=== PATIENT | female | born 1945 | race Caucasian/White ===

== ENCOUNTER → 2017-09-12 | Outpatient (CLI) | payer OTHER ==
[2014-03-28 10:51] VITALS: BP 118/62
[~2017-09-12] MED LIST: ALBU8.5H6 IH; AMIO200T2 PO; AMLO5TAB2 PO; ASPI-630 PO; BACL10TA PO; BUDE10.2 IH; CELE200C PO; CRESTOR20 MG PO; DIGO0.25 PO; DIGO125T PO; DULO60CA44 PO; HYDR25TA9 PO; LISI10TA2 PO; LOSA100T6 PO; METF-620 PO; METF500T4 PO; MULT-18 PO; OMEP20CA5 PO; OXYC-328 PO; Oxycodone Hcl/Acetaminophen PO; REGADENOSON 0.4 MG/5 ML DISP.SYRIN. IV ONE; SITA100T PO; TEMA30CA PO; ZOLP5TAB PO
--- NOTE | 2017-09-12 12:31 | RAD ---
APPROVED REPORT Test Type: Pharmacological Stress Nurse/Tech: Nakia Gonzáles R.N. Test Indications: afib, dyspnea Cardiac History: cad, cabg 4 vessel 2004, asthma, copd, smoker, dm Medications: see ehr Medical History: see ehr Resting ECG: sr Resting Heart Rate: 54 bpm Resting Blood Pressure: 172/65mmHg Pretest Chest Pain: No chest pain Nurse/Tech Notes lungs diminshed, no wheezes, but dyspnea noted, heart tones regular Consent: The procedure was explained to the patient in lay terms. Informed consent was witnessed. Charles eout was entered into [employer]. History and Stress Test performed by KANDACE aRscon, DARREN (R) (N) Pharm. Details Pharmacologic stress testing was performed using 0.4mg per 5ml of regadenoson given intravenously ove r 7-10 seconds. Stress Symptoms No chest pain or symptoms.Dyspnea POST EXERCISE Reason for Termination: Infusion complete Target HR: No Max HR: 64 bpm Max Blood Pressure: 155/64mmHg Chest Pain: No. Arrhythmia: No. ST Change: No. INTERPRETATION Stress EKG Conclusion: Baseline EKG showed sinus rhythm. No ischemic changes at peak stress. No arr hythmias. Imaging Protocol IMAGE PROTOCOL: Rest Tc-99m/stress Tc-99m 1 day Rest: Stress: Viability: Radiopharm.Tc99m QzisefvgvPs18g Sestamibi Dose11.1mCi 33mCi Img Date 09/12/2017 09/12/2017 Inj-Img Lzdy17yug. 60min. Rest Admin Site:IV - Right ForearmAdministrator:RT Felisa (R)(N) Stress Admin Site: IV - Right ForearmAdministrator: KANDACE Rascon, DARREN (R)(N) STRESS DATA End Diast. Vol.172.0mlAv. Heart Rate54.0bpm End Syst. Vol.65.0mlCO Index BSA0.0L/min Myocardial Kexz072.0gEject. Ulnsvaup41.0% Stress Rates Pk. Fill Rate2.25EDV/secLVtime Pk. Fill 209.22msec Pk. Empty Rate2.60ESV/secLVtime Pk. Enqrv661.19msec Pk. Fill1.11EDV/sec Stress Scores Regional WT0.00Summed WT4.00 Regional WM0.00Summed WM9.00 Study quality was good. Left Ventricular size was Normal at Rest and Stress. Lung uptake was Normal. Left Ventricular ejection fraction is 62%. The rest and stress images show normal perfusion, normal contraction and thickening. LV Perf. Quant 17 Seg. SSS0.00 17 Seg. SRS1.00 17 Seg. SDS0.00 Stress Defect Extent (% LAD)0.00Rest Defect Extent (% LAD)5.60Rev. Defect Extent (% LAD)0.00 Stress Defect Extent (% LCX) 0.00Rest Defect Extent (% LCX)0.00Rev. Defect Extent (% LCX)0.00 Stress Defect Extent (% RCA)0.00Rest Defect Extent (% RCA)0.00Rev. Defect Extent (% RCA)0.00 Stress Defect Extent (% SAMIR)0.00Rest Defect Extent (% SAMIR)2.60Rev. Defect Extent (% SAMIR)0.00 Conclusion 1. Regadenoson cardioisotope stress test did not show any evidence of ischemia or infarct. 2. Normal left ventricular systolic function with ejection fraction calculated at 62%. 3. Low risk for cardiac events.
== END | disposition home or self-care (01) ==
LOC: NM 08:31
PROVIDERS: ATTEND Physician Assistant Medical
DX: I48.91 Unspecified atrial fibrillation (principal); I25.10 Atherosclerotic heart disease of native coronary artery without angina pectoris; I49.5 Sick sinus syndrome; J44.9 Chronic obstructive pulmonary disease, unspecified; E11.9 Type 2 diabetes mellitus without complications; J45.909 Unspecified asthma, uncomplicated; R06.09 Other forms of dyspnea; Z87.891 Personal history of nicotine dependence
CPT/HCPCS: 78452; 93017; 96374; 96375; 96376; A9500; J2785

== ENCOUNTER 2017-11-29 15:22 | Inpatient (IN) | payer OTHER ==
[2017-11-29 16:05] LABS: ADD MAN DIFF? NO
[2017-11-29] MEDS: methylPREDNISolone SOD SUCC PF 125 MG/2 ML VIAL. IV (16:05)
[2017-11-29] MEDS: IV NORMAL SALINE 1000ML BAG 1,000 ML IV ×3 (16:05→19:29)
[2017-11-29] MEDS: IPRATRPIUM/ALBUTEROL 0.5/2.5MG 3 ML NEBU. NEB (16:12)
[2017-11-29 16:19] LABS: BASO % 0 % (0-3); EOS # 0.1 x10^3/uL (0.0-0.7); EOS % 1 % (0-3); HEMATOCRIT 30.8 % (36.0-47.0); HEMOGLOBIN 10.5 g/dL (12.0-15.5); LYMPH # 1.2 x10^3/uL (1.0-4.8); LYMPH % 16 % (24-48); MEAN CORPUSCULAR HEMOGLOBIN 29 pg (25-35); MEAN CORPUSCULAR HGB CONC 34 g/dL (31-37); MEAN CORPUSCULAR VOLUME 85 fL (79-100); MONO # 0.5 x10^3/uL (0.0-1.1); MONO % 7 % (0-9); NEUT # 5.7 x10^3uL (1.8-7.7); NEUT % 77 % (31-73); PLATELET COUNT 153 x10^3/uL (140-400); RED BLOOD COUNT 3.62 x10^6/uL (3.50-5.40); RED CELL DISTRIBUTION WIDTH 16.5 % (11.5-14.5); WHITE BLOOD COUNT 7.4 x10^3/uL (4.0-11.0)
[2017-11-29 16:25] LABS: ANION GAP 9 (6-14); BLOOD UREA NITROGEN 25 mg/dL (7-20); CARBON DIOXIDE 29 mmol/L (21-32); CHLORIDE 96 mmol/L (98-107); CREATININE 1.6 mg/dL (0.6-1.0); GFR 31.8; GLUCOSE 141 mg/dL (70-99); SODIUM 134 mmol/L (136-145)
[2017-11-29 16:36] LABS: TROPONINI < 0.017 ng/mL (0.000-0.055)
[2017-11-29] MEDS: AZITHROMYCIN 250 MG TABLET. PO (19:28)
[2017-11-29] MEDS ORDERED: IPRATRPIUM/ALBUTEROL 0.5/2.5MG 3 ML NEBU. NEB (20:00)
[2017-11-29] MEDS ORDERED: NON FORMULARY ITEM (Budesonide/Formoterol Fumarate (Symbicort 160-4.5 Mcg Inhaler) 10.2 GM IH (21:00)
[2017-11-29] MEDS: NON FORMULARY ITEM (Suvorexant (Belsomra) 20 MG) PO (21:00)
[2017-11-29 21:33] LABS: POC GLUCOSE 240 mg/dL (70-99)
[2017-11-29] MEDS: ATORVASTATIN CALCIUM 40 MG TABLET. PO (21:52)
[2017-11-29] MEDS: oxyCODONE ER 10 MG TAB.ER.12H PO (21:53)
[2017-11-29 22:24] LABS: TROPONINI < 0.017 ng/mL (0.000-0.055)
[2017-11-30 01:14] LABS: TROPONINI < 0.017 ng/mL (0.000-0.055)
[2017-11-30] MEDS: IV NORMAL SALINE 1000ML BAG 1,000 ML IV ×2 (05:15→11:05)
[2017-11-30 07:52] LABS: POC GLUCOSE 174 mg/dL (70-99)
[2017-11-30] MEDS: ALBUTEROL SULFATE 2.5 MG/3 ML NEBU. NEB ×4 (08:00→20:04)
[2017-11-30] MEDS: BUDESONIDE 0.5 MG/2 ML NEBU. NEB ×2 (08:00→20:04)
[2017-11-30] MEDS: DULoxetine HCL 30 MG CAPSULE.DR PO (08:06)
[2017-11-30] MEDS: DIGOXIN 125 MCG TABLET. PO (08:06)
[2017-11-30] MEDS: hydroCHLOROthiazide 25 MG TABLET PO (08:06)
[2017-11-30] MEDS: CELECOXIB 200 MG CAPSULE. PO (08:06)
[2017-11-30] MEDS: PANTOPRAZOLE 40 MG TABLET.DR. PO (08:06)
[2017-11-30] MEDS: AMIODARONE HCL 200 MG TABLET. PO (08:07)
[2017-11-30] MEDS: ASPIRIN CHEWABLE 81 MG TABLET. PO (08:07)
[2017-11-30] MEDS: BACLOFEN 10 MG TABLET. PO (08:07)
[2017-11-30] MEDS: oxyCODONE ER 10 MG TAB.ER.12H PO ×2 (08:07→20:57)
[2017-11-30] MEDS: MULTIVITAMIN with MINERAL TABLET. PO (08:07)
[2017-11-30 10:25] LABS: POC GLUCOSE 170 mg/dL (70-99)
[2017-11-30] MEDS: methylPREDNISolone SOD SUCC PF 40 MG/ML VIAL. IV ×3 (10:39→21:59)
[2017-11-30] MEDS: IV 1/2 NORMAL SALINE 1,000 ML IV (10:40)
[2017-11-30] MEDS: AZITHROMYCIN 500 MG in IV NORMAL SALINE 250ML 250 ML IV (10:40)
[2017-11-30] MEDS: cefTRIAXone IV Push 1 GM VIAL. IVP (10:40)
[2017-11-30] MEDS: LOSARTAN POTASSIUM 50 MG TABLET. PO (10:42)
[2017-11-30] MEDS: amLODIPine BESYLATE 5 MG TABLET PO (10:42)
[2017-11-30 17:06] LABS: POC GLUCOSE 194 mg/dL (70-99)
[2017-11-30] MEDS: NON FORMULARY ITEM (Suvorexant (Belsomra) 20 MG) PO (20:52)
[2017-11-30] MEDS: LACTOBACILLUS RHAMNOSUS GG 1 CAPSULE. PO (20:57)
[2017-11-30] MEDS: ATORVASTATIN CALCIUM 40 MG TABLET. PO (20:58)
[2017-11-30 21:04] LABS: POC GLUCOSE 248 mg/dL (70-99)
[2017-12-01 04:34] LABS: CREATININE 1.1 mg/dL (0.6-1.0)
[2017-12-01] MEDS: methylPREDNISolone SOD SUCC PF 40 MG/ML VIAL. IV ×3 (05:32→21:12)
[2017-12-01] MEDS: IV 1/2 NORMAL SALINE 1,000 ML IV (06:16)
[2017-12-01] MEDS: PANTOPRAZOLE 40 MG TABLET.DR. PO (06:16)
[2017-12-01 08:09] LABS: POC GLUCOSE 187 mg/dL (70-99)
[2017-12-01] MEDS: BUDESONIDE 0.5 MG/2 ML NEBU. NEB ×2 (08:14→20:35)
[2017-12-01] MEDS: ALBUTEROL SULFATE 2.5 MG/3 ML NEBU. NEB ×4 (08:14→20:35)
[2017-12-01] MEDS: MULTIVITAMIN with MINERAL TABLET. PO (08:17)
[2017-12-01] MEDS: DULoxetine HCL 30 MG CAPSULE.DR PO (08:17)
[2017-12-01] MEDS: ASPIRIN CHEWABLE 81 MG TABLET. PO (08:17)
[2017-12-01] MEDS: CELECOXIB 200 MG CAPSULE. PO (08:17)
[2017-12-01] MEDS: LACTOBACILLUS RHAMNOSUS GG 1 CAPSULE. PO ×2 (08:18→21:07)
[2017-12-01] MEDS: BACLOFEN 10 MG TABLET. PO (08:18)
[2017-12-01] MEDS: oxyCODONE ER 10 MG TAB.ER.12H PO ×2 (08:18→21:08)
[2017-12-01] MEDS: hydroCHLOROthiazide 25 MG TABLET PO (08:18)
[2017-12-01] MEDS: DIGOXIN 125 MCG TABLET. PO (08:18)
[2017-12-01] MEDS: amLODIPine BESYLATE 5 MG TABLET PO (08:19)
[2017-12-01] MEDS: AMIODARONE HCL 200 MG TABLET. PO (08:19)
[2017-12-01] MEDS: LOSARTAN POTASSIUM 50 MG TABLET. PO (08:19)
[2017-12-01] MEDS: AZITHROMYCIN 500 MG in IV NORMAL SALINE 250ML 250 ML IV (10:53)
[2017-12-01] MEDS: cefTRIAXone IV Push 1 GM VIAL. IVP (10:54)
[2017-12-01 11:40] LABS: POC GLUCOSE 184 mg/dL (70-99)
[2017-12-01] MEDS: ALPRAZolam 0.25 MG TABLET PO ×2 (13:38→21:58)
[2017-12-01 17:18] LABS: POC GLUCOSE 239 mg/dL (70-99)
[2017-12-01 20:58] LABS: POC GLUCOSE 122 mg/dL (70-99)
[2017-12-01] MEDS: NON FORMULARY ITEM (Suvorexant (Belsomra) 20 MG) PO (21:00)
[2017-12-01] MEDS: ATORVASTATIN CALCIUM 40 MG TABLET. PO (21:07)
[2017-12-02] MEDS: IV 1/2 NORMAL SALINE 1,000 ML IV (02:28)
[2017-12-02] MEDS: methylPREDNISolone SOD SUCC PF 40 MG/ML VIAL. IV (02:31)
[2017-12-02 05:32] LABS: BLOOD UREA NITROGEN 15 mg/dL (7-20); CALCIUM 9.1 mg/dL (8.5-10.1); CHLORIDE 104 mmol/L (98-107); CREATININE 1.1 mg/dL (0.6-1.0); GLUCOSE 123 mg/dL (70-99); POTASSIUM 3.8 mmol/L (3.5-5.1); SODIUM 140 mmol/L (136-145)
[2017-12-02 05:33] LABS: ANION GAP 4 (6-14); CARBON DIOXIDE 32 mmol/L (21-32)
[2017-12-02] MEDS: PANTOPRAZOLE 40 MG TABLET.DR. PO (06:10)
[2017-12-02] MEDS: ALPRAZolam 0.25 MG TABLET PO (06:14)
[2017-12-02 07:58] LABS: POC GLUCOSE 113 mg/dL (70-99)
[2017-12-02] MEDS: BUDESONIDE 0.5 MG/2 ML NEBU. NEB (08:04)
[2017-12-02] MEDS: ALBUTEROL SULFATE 2.5 MG/3 ML NEBU. NEB (08:06)
[2017-12-02] MEDS: CELECOXIB 200 MG CAPSULE. PO (08:54)
[2017-12-02] MEDS: oxyCODONE ER 10 MG TAB.ER.12H PO (08:55)
[2017-12-02] MEDS: DIGOXIN 125 MCG TABLET. PO (08:55)
[2017-12-02] MEDS: amLODIPine BESYLATE 5 MG TABLET PO (08:55)
[2017-12-02] MEDS: ASPIRIN CHEWABLE 81 MG TABLET. PO (08:56)
[2017-12-02] MEDS: DULoxetine HCL 30 MG CAPSULE.DR PO (08:56)
[2017-12-02] MEDS: MULTIVITAMIN with MINERAL TABLET. PO (08:56)
[2017-12-02] MEDS: BACLOFEN 10 MG TABLET. PO (08:56)
[2017-12-02] MEDS: LOSARTAN POTASSIUM 50 MG TABLET. PO (08:56)
[2017-12-02] MEDS: LACTOBACILLUS RHAMNOSUS GG 1 CAPSULE. PO (08:56)
[2017-12-02] MEDS: hydroCHLOROthiazide 25 MG TABLET PO (08:57)
[2017-12-02] MEDS: AMIODARONE HCL 200 MG TABLET. PO (08:57)
[2017-12-02] MEDS: cefTRIAXone IV Push 1 GM VIAL. IVP (10:18)
[2017-12-02] MEDS: AZITHROMYCIN 500 MG in IV NORMAL SALINE 250ML 250 ML IV (10:19)
[2017-12-02 11:08] LABS: POC GLUCOSE 121 mg/dL (70-99)
== END 2017-12-02 11:30 | disposition home or self-care (01) | DRG 682 ==
LOC: ER 15:22 → 5 NORTH 19:00
DX: N17.0 Acute kidney failure with tubular necrosis (principal); J96.21 Acute and chronic respiratory failure with hypoxia; I48.91 Unspecified atrial fibrillation; I50.9 Heart failure, unspecified; E11.9 Type 2 diabetes mellitus without complications; E86.0 Dehydration; J44.1 Chronic obstructive pulmonary disease with (acute) exacerbation; F17.210 Nicotine dependence, cigarettes, uncomplicated; F41.9 Anxiety disorder, unspecified; I25.10 Atherosclerotic heart disease of native coronary artery without angina pectoris; Z90.49 Acquired absence of other specified parts of digestive tract; Z95.1 Presence of aortocoronary bypass graft; Z71.6 Tobacco abuse counseling
CPT/HCPCS: 36415; 71045; 78582; 80048; 82565; 82962; 84484; 85025; 93005; 94640; 94760; 96374; 99285; 99285-25; A9540; A9558; J0456; J0696; J2920; J2930; J7030; J7050; J7613; J7620; J7626; Q0144

== ENCOUNTER → 2018-10-09 | Outpatient (CLI) | payer OTHER ==
[2017-12-02 11:00] VITALS: BP 141/81
[~2018-10-09] MED LIST changes: -AMIO200T2 PO; +AMIO200T4 PO; -AMLO5TAB2 PO; +AMLO5TAB7 PO; +DOXY100C14 PO; +HYDR-2145 PO; -HYDR25TA9 PO; +LOSA100T14 PO; -LOSA100T6 PO; -METF-620 PO; +METF10007 PO; +METF500T16 PO; -METF500T4 PO; -OXYC-328 PO; +OXYC1TAB22 PO; +OXYC20TA34 PO; +PRED20TA PO; -REGADENOSON 0.4 MG/5 ML DISP.SYRIN. IV ONE; +SUVO20TA PO
--- NOTE | 2018-10-09 15:48 | CARD ---
MR#: [id number] Date of Study: 10/09/2018 Ordering Physician: JAYLA BRAY, Referring Physician: JAYLA BRAY, Tech: Lis Gleason [facility] APPROVED REPORT EXAM: Two-dimensional and M-mode echocardiogram with Doppler and color Doppler. Other Information Quality : AverageHR: 56bpm Rhythm : Atrial Fibrillation INDICATION COPD Atrial Fibrillation Congestive Heart Failure RISK FACTORS Smoking 2D DIMENSIONS RVDd4.0 (2.9-3.5cm)Left Atrium(2D)4.2 (1.6-4.0cm) IVSd0.8 (0.7-1.1cm)Aortic Root(2D)3.3 (2.0-3.7cm) LVDd6.1 (3.9-5.9cm)LVOT Diameter1.9 (1.8-2.4cm) PWd1.0 (0.7-1.1cm)LVDs4.5 (2.5-4.0cm) FS (%) 26.3 %SV95.6 ml Aortic Valve AoV Peak Jun.242.4cm/sAoV VTI54.8cm AO Peak GR.23.5mmHgAO Mean GR.13mmHg Pulmonary Valve PV Peak Xlvskpgw953.9cm/s Tricuspid Valve TR P. Azodotxd995vv/sTR Peak Gr.30mmHg Pulmonary Vein S1 Unvyrbck49.8cm/sD2 Xvntmtrb41.6cm/s PVa jkcrsjae691prjo LEFT VENTRICLE The Left Ventricle is borderline dilated. There is borderline concentric left ventricular hypertrophy . The left ventricular systolic function is normal and the ejection fraction is within normal range. Left ventricular ejection fraction is estimated at 50%. There is normal LV segmental wall motion. RIGHT VENTRICLE The right ventricle is mildly dilated. There is normal right ventricular wall thickness. The right ve ntricular systolic function is normal. ATRIA The left atrium is mild to moderately dilated. The right atrium is mildly dilated. The interatrial se ptum is intact with no evidence for an atrial septal defect or patent foramen ovale as noted on 2-D o r Doppler imaging. AORTIC VALVE The aortic valve is mildly thickened but opens well. Doppler and Color Flow revealed trace aortic reg urgitation. There is no significant aortic valvular stenosis. MITRAL VALVE The mitral valve is normal in structure and function. Doppler and Color-flow revealed mild mitral reg urgitation. TRICUSPID VALVE The tricuspid valve is normal in structure and function. Doppler and Color Flow revealed mild tricusp id regurgitation. Estimated PAP 35mmHg. PULMONIC VALVE Doppler and Color Flow revealed no pulmonic valvular regurgitation. There is no pulmonic valvular sarath nosis. GREAT VESSELS The aortic root is normal in size. The IVC is normal in size and collapses >50% with inspiration. PERICARDIAL EFFUSION There is no evidence of significant pericardial effusion. Critical Notification Critical Value: No <Conclusion> The Left Ventricle is borderline dilated. The left ventricular systolic function is normal and the ejection fraction is within normal range. Left ventricular ejection fraction is estimated at 50%. There is borderline concentric left ventricular hypertrophy. There is no significant aortic valvular stenosis. Doppler and Color Flow revealed trace aortic regurgitation. Doppler and Color-flow revealed mild mitral regurgitation. Doppler and Color Flow revealed mild tricuspid regurgitation. Estimated PAP 35mmHg. Signed by : Zach Hernandez MD Electronically Approved : 10/09/2018 15:46:07
== END | disposition home or self-care (01) ==
LOC: ECHO 14:01
PROVIDERS: ATTEND Physician Assistant Medical
DX: I08.1 Rheumatic disorders of both mitral and tricuspid valves (principal); I11.0 Hypertensive heart disease with heart failure; I50.31 Acute diastolic (congestive) heart failure; I48.91 Unspecified atrial fibrillation; F17.210 Nicotine dependence, cigarettes, uncomplicated
CPT/HCPCS: 93306

== ENCOUNTER → 2019-09-21 | Outpatient (CLI) | payer OTHER ==
[2017-12-02 11:00] VITALS: BP 141/81
[~2019-09-21] MED LIST changes: +AMLO5TAB10 PO; -AMLO5TAB7 PO; -DIGO125T PO; +DIGO125T3 PO; -DULO60CA44 PO; +DULO60CA45 PO; +REGADENOSON 0.4 MG/5 ML DISP.SYRIN. IV ONE
--- NOTE | 2019-09-21 10:54 | CARD ---
MR#: [id number] Date of Study: 09/21/2019 Ordering Physician: AMPARO DUNN, Referring Physician: AMPARO DUNN, Tech: Madelin Russell APPROVED REPORT EXAM: Two-dimensional and M-mode echocardiogram with Doppler and color Doppler. Other Information Quality : FairHR: 68bpm Technically limited study due to smoking. INDICATION Cardiac Disease: CAD Surgery/Intervention CABG: Date: 2003 RISK FACTORS Hypertension Hyperlipidemia Diabetes Smoking 2D DIMENSIONS Left Atrium(2D)3.4 (1.6-4.0cm)IVSd1.1 (0.7-1.1cm) Aortic Root(2D)3.6 (2.0-3.7cm)LVDd5.7 (3.9-5.9cm) LVOT Diameter2.0 (1.8-2.4cm)PWd1.3 (0.7-1.1cm) LVDs4.9 (2.5-4.0cm)FS (%) 13.0 % SV43.4 mlLVEF(%)27.5 (>50%) Aortic Valve AoV Peak Jun.253.6cm/sAoV VTI48.6cm AO Peak GR.25.7mmHgLVOT Peak Jun.52.6cm/s LVOT VTI 15.10cmAO Mean GR.14mmHg BESS (VMAX)0.18sw2QAV (VTI)0.94cm2 AI P 1/2 Xodk560jd Mitral Valve MV E Xxuzrzod545.8cm/sMV E Peak Gr.172mmHg MV DECEL [id number] A Mltzvcbi17.2cm/s MV E Mean Gr.2mmHgMV ISO37do E/A Ratio2.1MVA (PHT)4.86cm2 TDI E/Lateral E'13.9E/Medial E'16.0 Pulmonary Valve PV Peak Gfsvbopi978.2cm/sPV Peak Grad.5mmHg Tricuspid Valve TR P. Sqzodrwt850rv/sTR Peak Gr.29mmHg Pulmonary Vein S1 Ftewshee93.8cm/sD2 Twmcwjcm61.2cm/s PVa medqbohc429lqfv LEFT VENTRICLE The Left Ventricle is mildly dilated. There is mild to moderate concentric left ventricular hypertrop hy. The left ventricular systolic function is mildly decreased. EF 40-45% Mild global hypokinesis. Th e left ventricular diastolic function and filling is normal for age. RIGHT VENTRICLE The right ventricle is normal size. There is normal right ventricular wall thickness. The right ventr icular systolic function is normal. ATRIA The left atrium is borderline dilated. The right atrium is mildly dilated. The interatrial septum is intact with no evidence for an atrial septal defect or patent foramen ovale as noted on 2-D or Dopple r imaging. AORTIC VALVE The aortic valve is calcified and displays decreased opening. Doppler and Color Flow revealed mild ao rtic regurgitation. Calculated aortic valve area is .86 cm2 with maximum pressure gradient of 41 mmHg and mean pressure gradient of 17 mmHg. Doppler and color-flow analysis revealed moderate aortic sten osis. MITRAL VALVE The mitral valve has a restricted posterior leaflet. There is no evidence of mitral valve prolapse. T here is no mitral valve stenosis. Doppler and Color-flow revealed moderate mitral regurgitation. TRICUSPID VALVE The tricuspid valve is normal in structure and function. Doppler and Color Flow revealed trace tricus pid regurgitation with an estimated PAP of 35 mmHg. There is no tricuspid valve stenosis. PULMONIC VALVE Doppler and Color Flow revealed no pulmonic valvular regurgitation. There is no pulmonic valvular sarath nosis. GREAT VESSELS The aortic root is normal in size. The IVC is normal in size and collapses >50% with inspiration. PERICARDIAL EFFUSION There is no evidence of significant pericardial effusion. Critical Notification Critical Value: No <Conclusion> The left ventricular systolic function is mildly decreased. EF 40-45% Mild global hypokinesis. Calculated aortic valve area is .86 cm2 with maximum pressure gradient of 41 mmHg and mean pressure g radient of 17 mmHg. Doppler and color-flow analysis revealed moderate aortic stenosis. Doppler and Color-flow revealed moderate mitral regurgitation. Signed by : Lamine Yan, Electronically Approved : 09/21/2019 10:54:21
--- NOTE | 2019-09-21 14:22 | RAD ---
MR#: [id number] Date of Study: 09/21/2019 Ordering Physician: AMPARO DUNN, Referring Physician: JULIA SALAZAR Tech: KANDACE Rascon, ARRT (R) (N) APPROVED REPORT Test Type: Pharmacological Stress Nurse/Tech: Ruby Onofre RN Test Indications: CAD Cardiac History: Afib, CABG 2004, HTN, Asthma, COPD, Diabetes Medications: See Electronic Medical Record Medical History: See Electronic Medical Record Resting ECG: Afib Resting Heart Rate: 68 bpm Resting Blood Pressure: 157/79mmHg Pretest Chest Pain: No chest pain Nurse/Tech Notes S1S2, Lungs CTA Consent: The procedure was explained to the patient in lay terms. Informed consent was witnessed. Charles eout was entered into [employer]. History and Stress Test performed by RT Crow Oconnor) (N) Pharm. Details Pharmacologic stress testing was performed using 0.4mg per 5ml of regadenoson given intravenously ove r 7-10 seconds. Stress Symptoms No chest pain or symptoms. POST EXERCISE Reason for Termination: Infusion complete Max HR: 103 bpm Max Blood Pressure: 163/79mmHg Blood Pressure response to exercise: Normal blood pressure response during stress. Heart Rate response to exercise: WNL Chest Pain: No. Arrhythmia: No. ST Change: No. INTERPRETATION Stress EKG Conclusion: No evidence of stress induced EKG changes. Imaging Protocol IMAGE PROTOCOL: Rest Tc-99m/stress Tc-99m 1 day Rest: Stress: Viability: Radiopharm.Tc99m FiuzbzccsFz91y Sestamibi Qfqh86pRe 33mCi Img Date 09/21/2019 09/21/2019 Inj-Img Vkyw85xii. 60min. Rest Admin Site:IV - Right AntecubitalAdministrator:MARLENA Rajput Stress Admin Site: IV - Right AntecubitalAdministrator: RT Elvin (R)(N) STRESS DATA End Diast. Vol.171.0mlLVEDV index CYK898.0ml End Syst. Vol.87.0mlLVESV index BSA57.0ml Myocardial Zpgz745.0gEject. Jehyzrjc86.0% Stress Scores Regional WT2.00Summed WT20.00 Regional WM0.00Summed WM11.00 LV Perfusion There is a small FIXED apical perfusion defect suggestive of prior infarct w/o significant ischemia. Wall Motion Mild global hypokinesis. EF 47% LV Perf. Quant 17 Seg. SSS1.00 17 Seg. SRS2.00 17 Seg. SDS0.00 Stress Defect Extent (% LAD)3.80Rest Defect Extent (% LAD)14.40Rev. Defect Extent (% LAD)0.00 Stress Defect Extent (% LCX) 0.00Rest Defect Extent (% LCX)0.00Rev. Defect Extent (% LCX)0.00 Stress Defect Extent (% RCA)0.00Rest Defect Extent (% RCA)0.00Rev. Defect Extent (% RCA)0.00 Stress Defect Extent (% SAMIR)1.30Rest Defect Extent (% SAMIR)6.50Rev. Defect Extent (% SAMIR)0.00 Other Information Quality:Average Risk Assessment: Moderate Risk Conclusion 1. No evidence of EKG changes with stress testing. 2. Small fixed apical perfusion defect. 3. Mild LV dysfunction. EF 47% 4. Low to moderate risk study. Signed by : Lamine Yan, Electronically Approved : 09/21/2019 14:21:59
== END | disposition home or self-care (01) ==
LOC: NM 08:47
PROVIDERS: ATTEND Internal Medicine Cardiovascular Disease
DX: I08.0 Rheumatic disorders of both mitral and aortic valves (principal); I25.10 Atherosclerotic heart disease of native coronary artery without angina pectoris; I48.91 Unspecified atrial fibrillation; I10 Essential (primary) hypertension; J45.909 Unspecified asthma, uncomplicated; J44.9 Chronic obstructive pulmonary disease, unspecified; Z87.891 Personal history of nicotine dependence; Z95.1 Presence of aortocoronary bypass graft
CPT/HCPCS: 78452; 93017; 93306; A9500; J2785

== ENCOUNTER 2020-02-24 12:50 | Inpatient (IN) | payer MEDICARE ==
[2020-02-24] VITALS (12 sets, daily range): BP systolic 145–176; BP diastolic 48–73
[~2020-02-24] VITALS: Ht 157.5 cm; Wt 62.1 kg
[~2020-02-24 12:50] MED LIST changes: -REGADENOSON 0.4 MG/5 ML DISP.SYRIN. IV ONE
[2020-02-24 14:19] LABS: BASO % 1 % (0-3); EOS # 0.1 x10^3/uL (0.0-0.7); EOS % 2 % (0-3); LYMPH % 13 % (24-48); MEAN CORPUSCULAR HEMOGLOBIN 23 pg (25-35); MEAN CORPUSCULAR HGB CONC 32 g/dL (31-37); MEAN CORPUSCULAR VOLUME 74 fL (79-100); MONO # 0.5 x10^3/uL (0.0-1.1); MONO % 6 % (0-9); NEUT # 5.9 x10^3/uL (1.8-7.7); NEUT % 79 % (31-73); PLATELET COUNT 211 x10^3/uL (140-400); RED BLOOD COUNT 2.48 x10^6/uL (3.50-5.40); RED CELL DISTRIBUTION WIDTH 16.5 % (11.5-14.5); WHITE BLOOD COUNT 7.6 x10^3/uL (4.0-11.0)
[2020-02-24 14:22] LABS: HEMATOCRIT 18.3 % (36.0-47.0); HEMOGLOBIN 5.8 g/dL (12.0-15.5)
--- NOTE | 2020-02-24 14:26 | NUR ---
critical Hgb and Hct reported to REBECCA Ray
[2020-02-24 14:46] LABS: ALBUMIN 3.3 g/dL (3.4-5.0); ALBUMIN/GLOBULIN RATIO 1.1 (1.0-1.7); CALCIUM 8.7 mg/dL (8.5-10.1); CREATININE 1.2 mg/dL (0.6-1.0); GFR 43.9; POTASSIUM 4.8 mmol/L (3.5-5.1); TOTAL BILIRUBIN 0.4 mg/dL (0.2-1.0); TOTAL PROTEIN 6.2 g/dL (6.4-8.2)
[2020-02-24] MEDS ORDERED: METO-239 PO (15:06)
[2020-02-24] MEDS ORDERED: VENTOLIN HFA18 GM INH (15:06)
[2020-02-24] MEDS ORDERED: OMEP40CA45 PO (15:06)
[2020-02-24] MEDS ORDERED: FLUT1DIS3 IH (15:06)
[2020-02-24] MEDS ORDERED: SUVO20TA PO (15:06)
[2020-02-24] MEDS ORDERED: HYDR25TA PO (15:06)
[2020-02-24] MEDS ORDERED: GABA300C18 PO (15:06)
[2020-02-24] MEDS ORDERED: LEVA1.252 IH (15:06)
[2020-02-24] MEDS ORDERED: VARE1TAB21 PO (15:06)
--- NOTE | 2020-02-24 15:29 | PDOC2 ---
GI CONSULT Reason For Consult: GI bleed HPI: HPI: Spunky 75 y/o female directly admitted by Dr. Pickett. Has noted dark stools ("not black but just really really really dark brown") for 1.5-2 weeks and has felt run down for the past couple days. Usually sees Juan Liu PA-C, and called him last week to report her "legs were dancing all night." Had labs on Saturday and was called on Saturday w/ recommendations to come to the hospital re: a phil. She didn't want to come but Dr. Pickett convinced her to come in today. Denies reflux/heartburn, n/v, abd pain, diarrhea, hematochezia, change in appetite, and weight loss. Has occasional solid food dysphagia and has been thinking about seeing Dr. Gaston for esophageal dilation. Has been more constipated for awhile - takes Milk of Magnesia PRN with good response. Had EGD and colonoscopy w/ Dr. Gaston in 2013 - cannot view procedure reports or path but after underwent right hemicolectomy w/ Dr. Lynch for right colon mass - also unable to view path. She says "it was stage 1 cancer and they said not to worry about it." H/o Weinberg's per other records. No GB, liver, pancreas, or PUD history. Unaware of any previous issues w/ anemia. H/o CAD on ASA and Eliquis - says started Eliquis w/ Dr. Garcia in late 2019 or early 2019. Summary list includes Celebrex - she denies and says she takes OxyContin instead. Says she was told she could have liquids tonight and an EGD tomorrow. PMH: PMH: CAD, A Fib, HTN, COPD (uses O2 at night), DM, BCC, melanoma tubal ligation, appendectomy, incisional hernia repair, right hemicolectomy FH: Family History: No pertinent hx Social History: Smoke: Quit ALCOHOL: none Drugs: None ROS: GEN: +fatigue HEENT: Denies blurred vision, sore throat CV: Denies chest pain RESP: Denies shortness of air, cough GI: Per HPI : Denies hematuria, dysuria ENDO: Denies weight changes NEURO: Denies confusion, dizziness MSK: +chronic pain SKIN: Denies jaundice, pruritus Vitals: Vitals: Vital Signs Date Time Temp Pulse Resp B/P (MAP) Pulse Ox O2 Delivery O2 Flow Rate FiO2 02/24/20 15:08 98.4 73 18 152/52 (85) 97 Room Air 98.4 02/24/20 13:45 2.0 Labs: Labs: Laboratory Tests Test 02/24/20 13:50 White Blood Count 7.6 x10^3/uL (4.0-11.0) Red Blood Count 2.48 x10^6/uL (3.50-5.40) Hemoglobin 5.8 g/dL (12.0-15.5) Hematocrit 18.3 % (36.0-47.0) Mean Corpuscular Volume 74 fL (79-100) Mean Corpuscular Hemoglobin 23 pg (25-35) Mean Corpuscular Hemoglobin Concent 32 g/dL (31-37) Red Cell Distribution Width 16.5 % (11.5-14.5) Platelet Count 211 x10^3/uL (140-400) Neutrophils (%) (Auto) 79 % (31-73) Lymphocytes (%) (Auto) 13 % (24-48) Monocytes (%) (Auto) 6 % (0-9) Eosinophils (%) (Auto) 2 % (0-3) Basophils (%) (Auto) 1 % (0-3) Neutrophils # (Auto) 5.9 x10^3/uL (1.8-7.7) Lymphocytes # (Auto) 1.0 x10^3/uL (1.0-4.8) Monocytes # (Auto) 0.5 x10^3/uL (0.0-1.1) Eosinophils # (Auto) 0.1 x10^3/uL (0.0-0.7) Basophils # (Auto) 0.0 x10^3/uL (0.0-0.2) Prothrombin Time 14.0 SEC (11.7-14.0) Prothromb Time International Ratio 1.1 (0.8-1.1) Sodium Level 137 mmol/L (136-145) Potassium Level 4.8 mmol/L (3.5-5.1) Chloride Level 99 mmol/L (98-107) Carbon Dioxide Level 29 mmol/L (21-32) Anion Gap 9 (6-14) Blood Urea Nitrogen 17 mg/dL (7-20) Creatinine 1.2 mg/dL (0.6-1.0) Estimated GFR (Cockcroft-Gault) 43.9 BUN/Creatinine Ratio 14 (6-20) Glucose Level 113 mg/dL (70-99) Calcium Level 8.7 mg/dL (8.5-10.1) Total Bilirubin 0.4 mg/dL (0.2-1.0) Aspartate Amino Transf (AST/SGOT) 12 U/L (15-37) Alanine Aminotransferase (ALT/SGPT) 14 U/L (14-59) Alkaline Phosphatase 87 U/L (46-116) Total Protein 6.2 g/dL (6.4-8.2) Albumin 3.3 g/dL (3.4-5.0) Albumin/Globulin Ratio 1.1 (1.0-1.7) Allergies: Coded Allergies: No Known Drug Allergies (Unverified , 02/17/14) PE: GEN: NAD HEENT: Atraumatic, PERRL LUNGS: CTAB anteriorly HEART: RRR +murm ABD: NABS, S/ND/NT EXTREMITY: No edema SKIN: No rashes, no jaundice NEURO/PSYCH: A & O 3 A/P: A/P: Dark stools, fatigue Microcytic anemia H/o Weinberg's esophagus Intermittent solid-food dysphagia CRC screen - last in 2013 S/p right hemicolectomy for colon mass Constipation - controlled A Fib and CAD on Eliquis and ASA ?NSAID use - Celebrex on list, she denies -- Agree w/ transfusion. Check anemia parameters for completeness. Add IV PPI for now. D/w Dr. Gaston - plan for EGD at noon tomorrow (NPO at midnight). Due for screening colonoscopy - could pursue as outpt pending hospital course. CORNELIO ELIAS February 24, 2020 15:29
--- NOTE | 2020-02-24 15:49 | HP ---
ADMIT DATE: 02/24/2020 CHIEF COMPLAINT: Severe anemia. HISTORY OF PRESENT ILLNESS: A 75-year-old white female, patient of ours, who has a history of known chronic atrial fibrillation and prior coronary artery disease, has been having melena for about the last 2 weeks. She was seen in the office by GERRI Sauceda about 4 days prior to admission and hemoglobin was 6.5. She declined intervention at that time and stopped taking the Eliquis and aspirin that she has been taking and was seen again in the office by Dr. Pickett. Hemoglobin was down to 5.8 even though she felt about the same and she is admitted for transfusions and GI evaluation. She has been on Eliquis for about the last 3 months for chronic atrial fibrillation with high risk for embolic phenomenon and had no problems until about 2 weeks ago regarding the melena. There has been no dysphagia, weight loss, vomiting, hematochezia or any other specific symptoms. She has been taking omeprazole every day throughout the entire course of these events. PAST MEDICAL HISTORY: She had bypass about 15 years ago. She has stable coronary artery disease and since then she has been on aspirin for many years, but the Eliquis has been the last 3 months or so. She has no other significant medical problems. ALLERGIES: No allergies. MEDICATIONS: She is on multiple meds listed per the chart, but no aspirin like products such as Aleve or ibuprofen. Last upper and lower endoscopy were approximately 2013 to her knowledge. SOCIAL HISTORY: She is . She is a nonsmoker, nondrinker. FAMILY HISTORY: Unremarkable. REVIEW OF SYSTEMS: No other problems except restless leg symptoms in the last 2-3 weeks concordant with the anemia. OBJECTIVE: HEENT: Mucosa pale. Moderate pallor is noted. Sclerae clear. TMs and pharynx normal. NECK: Revealed no carotid bruits, nodes or masses. LUNGS: No breathing problems. CARDIOVASCULAR: Regular rate. Grade 2-3 systolic murmur across the precordium. No irregular heartbeat is heard. ABDOMEN: Soft, benign and nontender. RECTAL: Heme positive melanotic stool on the day of exam prior to the office visit. No masses are felt. EXTREMITIES: Nailbed pallor. Good pedal and radial pulses. No joint or skin lesions. NEUROLOGIC: Physiologic. ASSESSMENT: 1. Severe iron deficiency anemia secondary to ongoing gastrointestinal blood loss. The addition of Eliquis 3 months ago appears to have precipitated this blood loss. 2. Chronic atrial fibrillation, rate controlled. 3. Coronary artery disease, medically stable despite anemia. 4. Chronic obstructive pulmonary disease. PLAN: Transfusion of 2 units of packed cells to try to get her hemoglobin at least around 8 grams or higher. Continue off Eliquis and aspirin as risk greater than benefit and appropriate consultations to consider at least upper endoscopy because of the acute melanotic blood loss. NOE PICKETT MD DR: KE/bobby JOB#: [id number] / [id number]
[2020-02-24] MEDS: PANTOPRAZOLE IV PUSH 40 MG VIAL. IVP SCH (15:59)
[2020-02-24] MEDS ORDERED: GABAPENTIN 300 MG CAPSULE. PO PRN (16:45)
[2020-02-24] MEDS ORDERED: ALBUTEROL SULFATE 2.5 MG/3 ML NEBU. NEB PRN (16:45)
[2020-02-24] MEDS: hydrOXYzine 25 MG TABLET PO SCH ×2 (17:28→20:06)
[2020-02-24] MEDS: metFORMIN 500 MG TABLET PO SCH (17:28)
[2020-02-24] MEDS ORDERED: NON FORMULARY ITEM (Albuterol Sulfate (Ventolin Hfa Inhaler) 2 PUFF) INH SCH (20:00)
[2020-02-24] MEDS: VARENICLINE 0.5 MG TABLET. PO SCH (20:05)
[2020-02-24] MEDS: oxyCODONE ER 10 MG TAB.ER.12H PO SCH (20:06)
[2020-02-24] MEDS: ATORVASTATIN CALCIUM 40 MG TABLET. PO SCH (20:06)
[2020-02-24] MEDS: NON FORMULARY ITEM (Suvorexant (Belsomra) 20 MG) PO SCH (21:00)
[2020-02-24] MEDS ORDERED: NON FORMULARY ITEM (Fluticasone/Salmeterol (Advair 250-50 Diskus) 1 PUFF) IH SCH (21:00)
[2020-02-24] MEDS ORDERED: LEVALBUTEROL HCL 1.25 MG IH SCH (21:00)
[2020-02-24] MEDS: BUDESONIDE 0.5 MG/2 ML NEBU. NEB SCH (21:01)
[2020-02-24] MEDS: ALBUTEROL SULFATE 2.5 MG/3 ML NEBU. NEB SCH (21:01)
[2020-02-25] VITALS (9 sets, daily range): BP systolic 137–167; BP diastolic 45–80
[2020-02-25 06:06] LABS: HEMATOCRIT 22.9 % (36.0-47.0); HEMOGLOBIN 7.5 g/dL (12.0-15.5); RED BLOOD COUNT 2.97 x10^6/uL (3.50-5.40); RED CELL DISTRIBUTION WIDTH 18.5 % (11.5-14.5); WHITE BLOOD COUNT 7.1 x10^3/uL (4.0-11.0)
[2020-02-25] MEDS: ALBUTEROL SULFATE 2.5 MG/3 ML NEBU. NEB SCH ×4 (07:16→19:54)
[2020-02-25] MEDS: BUDESONIDE 0.5 MG/2 ML NEBU. NEB SCH ×2 (07:16→19:54)
[2020-02-25] MEDS: PANTOPRAZOLE IV PUSH 40 MG VIAL. IVP SCH (08:59)
[2020-02-25] MEDS: DULoxetine HCL 30 MG CAPSULE.DR PO SCH (09:00)
[2020-02-25] MEDS ORDERED: NON FORMULARY ITEM (Omeprazole 1 CAP) PO SCH (09:00)
--- NOTE | 2020-02-25 10:55 | NUR ---
patient transferred to outpatient for procedure.
[2020-02-25] MEDS ORDERED: PROPOFOL 10 MG/ML (20ML) VIAL. IV ONE (11:25)
[2020-02-25] MEDS: IV RINGERS,LACTATED 1000ML 1,000 ML IV SCH ×2 (11:29→12:41)
--- NOTE | 2020-02-25 12:24 | PDOC4 ---
Operative Note Operative Note EGD Meds propofol per anesthesia Pre-op dx chronic blood loss anemia Post-op reflux esophagitis Plan advance diet serial cbcs o/p colonoscopy to further assess ERIC AGUILAR MD February 25, 2020 12:24
[2020-02-25] MEDS: hydrOXYzine 25 MG TABLET PO SCH ×4 (13:00→21:10)
[2020-02-25] MEDS: metFORMIN 500 MG TABLET PO SCH ×2 (13:10→16:54)
[2020-02-25] MEDS: CELECOXIB 100 MG CAPSULE. PO SCH (13:10)
[2020-02-25] MEDS: VARENICLINE 0.5 MG TABLET. PO SCH ×2 (13:10→21:10)
[2020-02-25] MEDS: hydroCHLOROthiazide 25 MG TABLET PO SCH (13:10)
[2020-02-25] MEDS: oxyCODONE ER 10 MG TAB.ER.12H PO SCH ×2 (13:11→21:09)
[2020-02-25] MEDS: BACLOFEN 10 MG TABLET. PO SCH (13:11)
[2020-02-25] MEDS: LOSARTAN POTASSIUM 50 MG TABLET. PO SCH (13:12)
[2020-02-25] MEDS: METOPROLOL SUCC 24HR ER 25 MG TAB.ER.24H. PO SCH (13:13)
[2020-02-25] MEDS: amLODIPine BESYLATE 5 MG TABLET PO SCH (13:13)
[2020-02-25] MEDS: DIGOXIN 125 MCG TABLET. PO SCH (13:13)
[2020-02-25] MEDS ORDERED: POLYETHYLENE GLYCOL 3350 17 GM PACKET. PO PRN (13:15)
--- NOTE | 2020-02-25 13:19 | NUR ---
Patient returned to room from procedure. Patient tolerated the procedure well.
[2020-02-25] MEDS: FERROUS SULFATE 325 MG TABLET. PO SCH (14:00)
--- NOTE | 2020-02-25 15:13 | NUR ---
SS following for discharge planning. SS reviewed pt chart and discussed with pt RN. Pt is from home and is currently on room air. Pt had EGD today. SS will continue to follow for discharge planning.
--- NOTE | 2020-02-25 15:58 | NUR ---
assumed care from Flor. transferred from 6th floor. iv infiltrated and discontinued prior to transfer (after shower). no further blood today. oriented to room call light. extra pillows obtained per request. o2 placed. clothes placed in room.
[2020-02-25] MEDS: NON FORMULARY ITEM (Suvorexant (Belsomra) 20 MG) PO SCH (21:00)
[2020-02-25] MEDS: ATORVASTATIN CALCIUM 40 MG TABLET. PO SCH (21:10)
[2020-02-26] VITALS (8 sets, daily range): BP systolic 147–171; BP diastolic 45–78
[2020-02-26 05:08] LABS: HEMATOCRIT 29.9 % (36.0-47.0); HEMOGLOBIN 9.3 g/dL (12.0-15.5)
[2020-02-26] MEDS: IV RINGERS,LACTATED 1000ML 1,000 ML IV SCH (06:24)
[2020-02-26] MEDS: BUDESONIDE 0.5 MG/2 ML NEBU. NEB SCH (07:09)
[2020-02-26] MEDS: ALBUTEROL SULFATE 2.5 MG/3 ML NEBU. NEB SCH ×2 (07:10→10:55)
[2020-02-26] MEDS ORDERED: PANTOPRAZOLE 40 MG TABLET.DR. PO SCH (07:30)
--- NOTE | 2020-02-26 07:56 | PDOC ---
Provider Note Provider Note vss, feels better- egd results pending, hb up 9.3 after 3rd unit- ok to dc and follow as op weekly of oac [id number] NOE MILLER MD February 26, 2020 07:56
[2020-02-26] MEDS: BACLOFEN 10 MG TABLET. PO SCH (08:35)
[2020-02-26] MEDS: DULoxetine HCL 30 MG CAPSULE.DR PO SCH (08:36)
[2020-02-26] MEDS: CELECOXIB 100 MG CAPSULE. PO SCH (08:36)
[2020-02-26] MEDS: oxyCODONE ER 10 MG TAB.ER.12H PO SCH (08:36)
[2020-02-26] MEDS: metFORMIN 500 MG TABLET PO SCH (08:37)
[2020-02-26] MEDS: amLODIPine BESYLATE 5 MG TABLET PO SCH (08:37)
[2020-02-26] MEDS: LOSARTAN POTASSIUM 50 MG TABLET. PO SCH (08:37)
[2020-02-26] MEDS: hydroCHLOROthiazide 25 MG TABLET PO SCH (08:38)
[2020-02-26] MEDS: METOPROLOL SUCC 24HR ER 25 MG TAB.ER.24H. PO SCH (08:38)
[2020-02-26] MEDS: DIGOXIN 125 MCG TABLET. PO SCH (08:38)
[2020-02-26] MEDS: FERROUS SULFATE 325 MG TABLET. PO SCH (08:40)
[2020-02-26] MEDS: VARENICLINE 0.5 MG TABLET. PO SCH (10:15)
--- NOTE | 2020-02-26 10:15 | PDOC ---
Subjective: Subjective: Feels fine, glad to get to go home today. Says plan is to not resume Eliquis or ASA yet. Objective: Vital Signs: Vital Signs Date Time Temp Pulse Resp B/P (MAP) Pulse Ox O2 Delivery O2 Flow Rate FiO2 02/26/20 08:38 65 171/60 02/26/20 08:30 Nasal Cannula 2.0 02/26/20 07:00 98.3 18 97 98.3 Labs: Laboratory Tests Test 02/25/20 16:26 02/26/20 03:41 02/26/20 07:06 Glucose (Fingerstick) 98 mg/dL 101 mg/dL Hemoglobin 9.3 g/dL Hematocrit 29.9 % Mean Corpuscular Hemoglobin Concent 31 g/dL Imaging: EGD 02/24 reflux esophagitis PE: GEN: NAD LUNGS: CTAB HEART: RRR ABD: S/ND/NT NEURO/PSYCH: A & O 3 A/P: Dark stools ATNIKA - improved w/ transfusions GERD CRC screen - last in 2013 S/p right hemicolectomy for colon mass Constipation - controlled A Fib and CAD - Eliquis and ASA held NSAID use -- EGD unrevealing for source. Dc per primary on iron (discussed OTC options) and PPI (provided Rx). Discussed possible need for Miralax QD/PRN if iron causes constipation. Follow-up for outpt colonoscopy - our office will call to arrange. If normal, consider SBFT/SBCE. Hemodynamically unstable?: No Is patient in severe pain?: No Is NPO status required?: No CORNELIO ELIAS February 26, 2020 10:15
--- NOTE | 2020-02-26 10:34 | NUR ---
SW following. Discussed with RN, pt from home, has oxygen at home. RN advised no SW needs, discharge order for home with self care today.
--- NOTE | 2020-02-26 13:57 | DS ---
DATE OF DISCHARGE: 02/26/2020 HOSPITAL SUMMARY: A 75-year-old white female who came in with severe anemia, hemoglobin 5.8 and 2 weeks of melena at home, indicating a probable upper abdominal source. Eliquis and aspirin were stopped and she received 3 units of packed red blood cells with hemoglobin up to 9.4 at the time of dismissal. Rest of the laboratory studies were unremarkable. EGD was done by Dr. Gaston ____ and results are pending, but no obvious active bleeding source was found according to the patient. At this time, she is comfortable to be followed as an outpatient. FINAL DIAGNOSIS: Severe iron deficiency anemia secondary to occult upper gastrointestinal bleeding. OPERATIONS AND PROCEDURES: EGD. COMPLICATIONS: None. CONSULTATIONS: Dr. Gaston. DISPOSITION: She will stay off Eliquis and aspirin until further notice, has greater risk than benefit. All home meds remain the same including omeprazole and we will follow her up weekly with hemoglobins as an outpatient. Colonoscopy may be considered as well depending on the results of the outpatient course. NOE MILLER MD DR: KE/bobby JOB#: [id number] / [id number]
== END 2020-02-26 11:56 | disposition home or self-care (01) | DRG 378 ==
LOC: 6 SOUTH 12:50 → 4 NORTH 02-25 15:45
PROVIDERS: ADMIT Family Medicine; ATTEND Family Medicine
PROC: 30233N1 Transfusion of Nonautologous Red Blood Cells into Peripheral Vein, Percutaneous Approach (ICD-10-PCS; principal; 2020-02-24)
PROC: 0DJ08ZZ Inspection of Upper Intestinal Tract, Via Natural or Artificial Opening Endoscopic (ICD-10-PCS; 2020-02-25)
DX: K92.2 Gastrointestinal hemorrhage, unspecified (principal); I48.20 Chronic atrial fibrillation, unspecified; K21.0 Gastro-esophageal reflux disease with esophagitis; D50.0 Iron deficiency anemia secondary to blood loss (chronic); E11.9 Type 2 diabetes mellitus without complications; I10 Essential (primary) hypertension; I25.10 Atherosclerotic heart disease of native coronary artery without angina pectoris; J44.9 Chronic obstructive pulmonary disease, unspecified; K59.00 Constipation, unspecified; Z90.49 Acquired absence of other specified parts of digestive tract; Z98.51 Tubal ligation status; R13.10 Dysphagia, unspecified
CPT/HCPCS: 36415; 43235; 80053; 82607; 82962; 83540; 83550; 85014; 85018; 85025; 85027; 85610; 86850; 86900; 86901; 86920; 94640; 94760; C9113; J2704; J7120; P9016; G0378; J7613; J7626

== ENCOUNTER → 2020-12-20 | Outpatient (CLI) | payer MEDICARE ==
[2020-02-26 10:37] VITALS: BP 170/77
[~2020-12-20] MED LIST changes: -AMIO200T4 PO; +AMIO200T6 PO; +AMLO-186 PO; -AMLO5TAB10 PO; +FLUT1DIS3 IH; +GABA300C18 PO; +HYDR25TA PO; +LEVA1.252 IH; +LISI10TA16 PO; -LISI10TA2 PO; +METO-239 PO; +OMEP40CA45 PO; +VARE1TAB21 PO; +VENTOLIN HFA18 GM INH
--- NOTE | 2020-12-20 16:15 | RAD ---
EXAM: Chest, 2 views. HISTORY: Upper respiratory tract infection. COMPARISON: None. FINDINGS: 2 views of the chest are obtained. There is lingular and left lower lobe infiltrate or pleu ral parenchymal scarring. There is blunting of the costophrenic angles likely due to large lung volum es. No convincing pleural effusion or pneumothorax is seen. There is a stable cardiac silhouette and evidence of prior CABG. There is thoracolumbar scoliosis. IMPRESSION: Lingular and left lower lobe pleural parenchymal scarring or interstitial infiltrate. Electronically signed by: Yumiko Shea MD (12/20/2020 4:12 PM) [id number]
== END ==
LOC: RAD 15:26
PROVIDERS: ATTEND Physician Assistant Medical
DX: J06.9 Acute upper respiratory infection, unspecified (principal); M41.85 Other forms of scoliosis, thoracolumbar region
CPT/HCPCS: 71046

== ENCOUNTER 2021-06-17 08:50 | Emergency (ER) | payer MEDICARE ==
[~2021-06-17] VITALS: Ht 157.5 cm; Wt 65.0 kg
[~2021-06-17 08:50] MED LIST changes: +ALBU2.5V8 IH; +APIX2.5T PO; +DOXY-181 PO; -DOXY100C14 PO; +GABA300C9 PO; +HYDR12.58 PO; -OMEP40CA45 PO; +OMEP40CA7 PO; +OXYC15TA61 PO; +ROPI0.5T4 PO; +VALIUM10 MG PO
[2021-06-17] MEDS ORDERED: IPRATRPIUM/ALBUTEROL 0.5/2.5MG 3 ML NEBU. NEB ONE (09:15)
--- NOTE | 2021-06-17 09:32 | ED.ADGEN ---
Past Medical History Past Medical History: A-Fib, CAD, CHF, COPD, Renal Failure Past Surgical History: Appendectomy, Coronary Bypass Surgery, Tonsillectomy Additional Past Surgical Histo: "colon" Smoking Status: Former Smoker Alcohol Use: None Drug Use: None General Adult EDM: Chief Complaint: SHORTNESS OF BREATH HPI: HPI: Patient is a 76 year old female coming in via EMS for shortness of breath. Patient states she woke up short of breath. Was given DuoNeb by EMS and states she is feeling better now. Patient was discharged from the hospital for COPD exacerbation and A. fib with RVR yesterday. Patient states she has a nebulizer at home as well as prednisone but has not taken either prior to calling EMS. Patient states that she wears oxygen at night but forgot to put it on last night. Patient states she feels fine now. Review of Systems: Review of Systems: All other systems within normal limits except for as noted in the HPI Current Medications: Current Medications Medications (Trade) Dose Ordered Sig/Ji Start Time Stop Time Status Last Admin Dose Admin Albuterol/ Ipratropium (Duoneb) 3 ml 1X ONCE 06/17/21 09:15 06/17/21 09:16 DC 06/17/21 09:23 3 ML Allergies: Allergies: Allergies Coded Allergies Type Severity Reaction Last Updated Verified No Known Drug Allergies 02/25/20 No Physical Exam: PE: Constitutional: Well developed, well nourished, no acute distress, non-toxic appearance. [] HENT: Normocephalic, atraumatic, bilateral external ears normal, nose normal. [] Eyes: PERRLA, conjunctiva normal, no discharge. [] Neck: No rigidity, supple, no stridor. [] Cardiovascular: Regular rate and rhythm, brisk cap refill [] Lungs & Thorax: Non labored symmetric respirations, no tachypnea or respiratory distress [] Abdomen: Soft, nondistended. Skin: Warm, dry, no erythema, no rash. [] Back: Unremarkable Extremities: No deformities, range of motion grossly intact, no lower extremity edema [] Neurologic: Alert and oriented X 3, no focal deficits noted. [] Psychologic: Affect normal, judgement normal, mood normal. [] Current Patient Data: Vital Signs: Vital Signs Date Time Temp Pulse Resp B/P (MAP) Pulse Ox O2 Delivery O2 Flow Rate FiO2 06/17/21 09:23 95 Room Air 06/17/21 08:50 98.2 87 18 145/84 (81) 98.2 EKG: EKG: [] Heart Score: C/O Chest Pain: No Risk Factors: Risk Factors: DM, Current or recent (<one month) smoker, HTN, HLP, family history of CAD, obesity. Risk Scores: Score 0 - 3: 2.5% MACE over next 6 weeks - Discharge Home Score 4 - 6: 20.3% MACE over next 6 weeks - Admit for Clinical Observation Score 7 - 10: 72.7% MACE over next 6 weeks - Early Invasive Strategies Radiology/Procedures: Radiology/Procedures: [] Course & Med Decision Making: Course & Med Decision Making Pertinent Labs and Imaging studies reviewed. (See chart for details) [] Dragon Disclaimer: Dragon Disclaimer: This electronic medical record was generated, in whole or in part, using a voice recognition dictation system. Departure Departure Impression: Primary Impression: Shortness of breath Disposition: 01 HOME / SELF CARE / HOMELESS Condition: STABLE Referrals: NOE MILLER MD (PCP) Patient Instructions: Nebulizer, Using a CARSON BROWN MD Jun 17, 2021 09:32
[2021-06-17 09:51] VITALS: BP 123/67
== END 2021-06-17 09:57 | disposition home or self-care (01) ==
LOC: ER 08:50
DX: R06.02 Shortness of breath (principal); I48.91 Unspecified atrial fibrillation; N19 Unspecified kidney failure; I25.810 Atherosclerosis of coronary artery bypass graft(s) without angina pectoris; J44.9 Chronic obstructive pulmonary disease, unspecified; I50.9 Heart failure, unspecified
CPT/HCPCS: 94640; 99283

== ENCOUNTER 2021-07-07 04:07 | Inpatient (IN) | payer MEDICARE ==
[~2021-07-07] VITALS: Ht 157.5 cm; Wt 69.0 kg
[2021-07-07 04:35] LABS: BASO # 0.1 x10^3/uL (0.0-0.2); BASO % 1 % (0-3); EOS # 0.2 x10^3/uL (0.0-0.7); EOS % 3 % (0-3); HEMATOCRIT 36.3 % (36.0-47.0); HEMOGLOBIN 12.2 g/dL (12.0-15.5); LYMPH # 1.8 x10^3/uL (1.0-4.8); LYMPH % 25 % (24-48); MEAN CORPUSCULAR HEMOGLOBIN 32 pg (25-35); MEAN CORPUSCULAR HGB CONC 34 g/dL (31-37); MEAN CORPUSCULAR VOLUME 96 fL (79-100); MONO # 0.5 x10^3/uL (0.0-1.1); MONO % 7 % (0-9); NEUT # 4.7 x10^3/uL (1.8-7.7); NEUT % 64 % (31-73); PLATELET COUNT 196 x10^3/uL (140-400); RED BLOOD COUNT 3.77 x10^6/uL (3.50-5.40); WHITE BLOOD COUNT 7.3 x10^3/uL (4.0-11.0)
[2021-07-07 04:55] LABS: CALCIUM 9.1 mg/dL (8.5-10.1); CREATININE 1.7 mg/dL (0.6-1.0); GFR 29.3; POTASSIUM 4.6 mmol/L (3.5-5.1)
[2021-07-07 05:00] LABS: ALBUMIN 3.5 g/dL (3.4-5.0)
[2021-07-07 05:01] LABS: TOTAL BILIRUBIN 0.5 mg/dL (0.2-1.0)
[2021-07-07] MEDS ORDERED: ONDANSETRON PF 4 MG/2 ML VIAL. IVP PRN (05:30)
[2021-07-07] MEDS ORDERED: ACETAMINOPHEN 325 MG TABLET. PO PRN (05:30)
--- NOTE | 2021-07-07 05:33 | PHYS DOC ---
Past Medical History Past Medical History: A-Fib, CAD, CHF, COPD, Renal Failure Past Surgical History: Appendectomy, Coronary Bypass Surgery, Tonsillectomy Additional Past Surgical Histo: "colon" Smoking Status: Current Some Day Smoker Alcohol Use: None Drug Use: None General Adult EDM: Chief Complaint: DYSPNEA/RESPIRATORY DISTRESS HPI: HPI: Patient is a 76 year old female past medical history COPD CHF A. fib presents for the evaluation of shortness of breath. Patient states shortness of breath started just prior to arrival. Upon EMS arrival patient was found to have oxygen saturation of 82% on room air. EMS stated that patient had audible wheezing and they treated patient with DuoNeb breathing treatments. On arrival to the ER patient's oxygen saturation was 97% on 4 L nasal cannula. Patient denieS any associated chest pain fevers or chills. Review of Systems: Review of Systems: Review of systems: Constitutional symptoms- No fever, no chills. Eyes- No Discharge, No Visual Loss Respiratory symptoms- Positive shortness of breath, No wheezing, No Dyspnea on Exertion Cardiovascular Systems; No chest pain, Positive Palpitations, No syncope Gastrointestinal symptoms: NO abdominal pain, no nausea, no vomiting or diarrhea. Genitourinary symptoms: No dysuria. Musculoskeletal symptoms: No back pain No extremity pain. NEUROLOGICAL Symptoms: No headache, no generalized weakness; No focal Weakness Skin: No rash. Heart Score: C/O Chest Pain: N/A Risk Factors: Risk Factors: DM, Current or recent (<one month) smoker, HTN, HLP, family history of CAD, obesity. Risk Scores: Score 0 - 3: 2.5% MACE over next 6 weeks - Discharge Home Score 4 - 6: 20.3% MACE over next 6 weeks - Admit for Clinical Observation Score 7 - 10: 72.7% MACE over next 6 weeks - Early Invasive Strategies Current Medications: Current Medications Medications (Trade) Dose Ordered Sig/Ji Start Time Stop Time Status Last Admin Dose Admin Acetaminophen (Tylenol) 650 mg PRN Q4HRS PRN 07/07/21 05:30 07/08/21 05:29 UNV Diltiazem HCl (Cardizem Iv Push) 10 mg 1X ONCE 07/07/21 05:00 07/07/21 05:01 DC 07/07/21 04:51 10 MG Diltiazem HCl 125 mg/Sodium Chloride 125 ml @ 5 mls/hr 1X ONCE 07/07/21 05:00 07/08/21 05:59 07/07/21 04:52 5 MLS/HR Furosemide (Lasix) 40 mg 1X ONCE 07/07/21 05:30 07/07/21 05:31 UNV Ondansetron HCl (Zofran) 4 mg PRN Q8HRS PRN 07/07/21 05:30 07/08/21 05:29 UNV Allergies: Allergies: Allergies Coded Allergies Type Severity Reaction Last Updated Verified No Known Drug Allergies 02/25/20 No Physical Exam: PE: General: alert, no acute distress. Skin: warm, dry and intact, no erythema, no rash. HENT: bilateral external ears normal, oropharynx moist, nose normal. Head:: Normocephalic, atraumatic. Neck: Trachea midline. Eyes: EOMI, Normal conjunctiva, No drainage CARDIOVASCULAR: Tachycardia RESPIRATORY: Tachypnea Back: Full range of motion. MUSCULOSKELETAL: Full range of motion of bilateral upper and lower extremities. GASTROINTESTINAL: Abdomen soft without rebound or guarding. NEUROLOGICAL: Alert and noted to person, place and time. No neurological deficits observed Psychiatric: Cooperative. Normal judgment Current Patient Data: Labs: Laboratory Tests Test 07/07/21 04:24 White Blood Count 7.3 x10^3/uL (4.0-11.0) Red Blood Count 3.77 x10^6/uL (3.50-5.40) Hemoglobin 12.2 g/dL (12.0-15.5) Hematocrit 36.3 % (36.0-47.0) Mean Corpuscular Volume 96 fL (79-100) Mean Corpuscular Hemoglobin 32 pg (25-35) Mean Corpuscular Hemoglobin Concent 34 g/dL (31-37) Red Cell Distribution Width 15.0 % (11.5-14.5) H Platelet Count 196 x10^3/uL (140-400) Neutrophils (%) (Auto) 64 % (31-73) Lymphocytes (%) (Auto) 25 % (24-48) Monocytes (%) (Auto) 7 % (0-9) Eosinophils (%) (Auto) 3 % (0-3) Basophils (%) (Auto) 1 % (0-3) Neutrophils # (Auto) 4.7 x10^3/uL (1.8-7.7) Lymphocytes # (Auto) 1.8 x10^3/uL (1.0-4.8) Monocytes # (Auto) 0.5 x10^3/uL (0.0-1.1) Eosinophils # (Auto) 0.2 x10^3/uL (0.0-0.7) Basophils # (Auto) 0.1 x10^3/uL (0.0-0.2) Sodium Level 140 mmol/L (136-145) Potassium Level 4.6 mmol/L (3.5-5.1) Chloride Level 102 mmol/L (98-107) Carbon Dioxide Level 25 mmol/L (21-32) Anion Gap 13 (6-14) Blood Urea Nitrogen 17 mg/dL (7-20) Creatinine 1.7 mg/dL (0.6-1.0) H Estimated GFR (Cockcroft-Gault) 29.3 BUN/Creatinine Ratio 10 (6-20) Glucose Level 232 mg/dL (70-99) H Calcium Level 9.1 mg/dL (8.5-10.1) Total Bilirubin 0.5 mg/dL (0.2-1.0) Aspartate Amino Transferase (AST) 32 U/L (15-37) Alanine Aminotransferase (ALT) 32 U/L (14-59) Alkaline Phosphatase 110 U/L (46-116) Troponin I Quantitative < 0.017 ng/mL (0.000-0.055) PA-Nvg-T-Type Natriuretic Peptide 8926 pg/mL (0-449) H Total Protein 7.0 g/dL (6.4-8.2) Albumin 3.5 g/dL (3.4-5.0) Albumin/Globulin Ratio 1.0 (1.0-1.7) Laboratory Tests 07/07/21 04:24 Laboratory Tests 07/07/21 04:24 Vital Signs: Vital Signs Date Time Temp Pulse Resp B/P (MAP) Pulse Ox O2 Delivery O2 Flow Rate FiO2 07/07/21 05:00 89 26 112/57 (75) 95 Nasal Cannula 4.0 07/07/21 04:21 96.5 96.5 EKG: EKG: [] Performed at 0413 Rate 151 A. fib RVR No acute [place] Radiology/Procedures: Radiology/Procedures: [] Course & Med Decision Making: Course & Med Decision Making Pertinent Labs and Imaging studies reviewed. (See chart for details) [] Patient was evaluated for chief complaint. Work-up consisted of laboratory analysis radiologic imaging and EKG. Results reviewed On arrival patient's heart rate in the 150s. EKG shows A. fib with RVR. Patient was treated with Cardizem 10 mg bolus followed by 5 mg/h drip. Post treatment heart rate improved to 86 bpm--rate controlled A. fib Patient states breathing has greatly improved. BNP noted to be 8000 previous BNP in the 6000s. Additional treatment included Lasix 40 mg IV push Patient on 2 L supplemental oxygen with O2 sat of 96%. Patient admitted to Dr. Pickett with cardiology consult. Critical Care Time 35 Minutes Time spent on reviewing labs, radiologic imaging, documentation, and discussing patient with physician Her Disclaimer: Taina Disclaimer: This electronic medical record was generated, in whole or in part, using a voice recognition dictation system. Departure Departure Impression: Primary Impression: Atrial fibrillation Disposition: ADMITTED INPATIENT Admitting Physician: Noe Pickett Condition: IMPROVED Referrals: NOE PICKETT MD (PCP) ANA SEAY DO Jul 07, 2021 05:33
[2021-07-07] MEDS ORDERED: FUROSEMIDE 40 MG/4 ML VIAL. IVP ONE (06:00)
[2021-07-07 06:50] VITALS: BP 138/70
--- NOTE | 2021-07-07 06:55 | RAD ---
EXAM: CHEST ONE VIEW. HISTORY: Shortness of breath. COMPARISON: 06/13/2021. FINDINGS: A frontal view of the chest is obtained. There are mild bibasilar predominant interstitial infiltrates. There is no pneumothorax or clear pleu ral effusion. The heart is moderately enlarged. There are changes of coronary artery bypass grafting. There are atherosclerotic calcifications of the aorta. IMPRESSION: 1. Mild pulmonary edema. Electronically signed by: Cristian Berg MD (07/07/2021 6:53 AM) [facility]
[2021-07-07] MEDS ORDERED: diazePAM 5 MG TABLET PO PRN (08:45)
--- NOTE | 2021-07-07 08:49 | PDOC ---
Provider Note Date of Service: DATE: 07/07/21 TIME: 08:48 Provider Note dictated Justifications for Admission Other Justification NOE MILLER MD Jul 07, 2021 08:49
[2021-07-07] MEDS ORDERED: NON FORMULARY ITEM (Fluticasone/Salmeterol (Advair 250-50 Diskus) 1 PUFF) IH SCH (09:00)
[2021-07-07] MEDS ORDERED: ANTI-COAG MONITOR BY PHARMACY. MC PRN (09:00)
[2021-07-07] MEDS: BACLOFEN 10 MG TABLET. PO SCH (09:01)
[2021-07-07] MEDS: rOPINIRole 0.25 MG TABLET. PO SCH ×3 (09:01→22:28)
[2021-07-07] MEDS: CELECOXIB 100 MG CAPSULE. PO SCH (09:02)
[2021-07-07] MEDS: PANTOPRAZOLE 40 MG TABLET.DR. PO SCH (09:02)
[2021-07-07] MEDS: APIXABAN 2.5 MG TABLET. PO SCH ×2 (09:02→22:27)
[2021-07-07] MEDS: hydroCHLOROthiazide 12.5 MG CAPSULE PO SCH (09:02)
[2021-07-07] MEDS: DULoxetine HCL 30 MG CAPSULE.DR PO SCH (09:02)
[2021-07-07] MEDS: hydrOXYzine 25 MG TABLET PO SCH ×4 (09:02→22:27)
[2021-07-07] MEDS: METOPROLOL SUCC 24HR ER 25 MG TAB.ER.24H. PO SCH (09:02)
[2021-07-07] MEDS: GABAPENTIN 300 MG CAPSULE. PO SCH ×3 (09:02→22:27)
[2021-07-07] MEDS: oxyCODONE ER 15 MG TAB.ER.12H PO SCH ×2 (09:03→22:29)
[2021-07-07] MEDS: BUDESONIDE 0.5 MG/2 ML NEBU. NEB SCH ×2 (09:15→19:55)
--- NOTE | 2021-07-07 10:00 | HP ---
ADMIT DATE: 07/07/2021 CHIEF COMPLAINT: Shortness of breath. HISTORY OF PRESENT ILLNESS: A 76-year-old white female with oxygen-dependent COPD and atrial fibrillation, has been taking her usual medications and developed increasing shortness of breath on the day of admission. She was not aware of a rapid heartbeat or palpitations, cough, fever, chills, hemoptysis, or other complaints. ER evaluation showed atrial fibrillation with a rate of about 140. She states she has been compliant with her medications. She is not sure if she takes metoprolol or diltiazem at home for rate control, but does take Eliquis among any other meds. She was given IV diltiazem and her heart rate slowed and she is feeling better and back to more or less normal at this time. PAST MEDICAL HISTORY MEDICATIONS: Multiple meds listed per the chart. Current record states she is on metoprolol low dose 25 mg and not diltiazem. She is not sure of her home meds. ALLERGIES: Multiple allergies noted in the old record. MEDICAL HISTORY: She is mild diabetic, controlled on metformin. SOCIAL HISTORY: Still light smoker, trying to quit, , uses oxygen periodically, nondrinker, not physically active. FAMILY HISTORY: Unremarkable. REVIEW OF SYSTEMS: No other complaints. OBJECTIVE: ENT: All within normal limits. NECK: No bruits, nodes, JVD or masses. LUNGS: Decreased breath sounds. No wheezing or tachypnea. CARDIOVASCULAR: Irregular rate consistent with atrial fibrillation, rate is 80-90. No S3 is heard. ABDOMEN: Soft, benign and nontender. EXTREMITIES: Reasonably good pedal and radial pulses. No edema. No joint or skin lesions are seen. 2+ clubbing is noted. NEUROLOGIC: Physiologic and nonfocal. No tremor. No other notable signs. Gait was not tested. ASSESSMENT: Shortness of breath secondary to atrial fibrillation with tachycardia. It is not clear if she is on adequate rate control medicine or not. Chronic obstructive pulmonary disease complicates the use of beta blockers. PLAN: We will stop metoprolol and use diltiazem p.o. now. Rest of home meds remain the same. Cardiology consultation pending but expect she will be able to go home in the next day if her rate stays in reasonable control. We discussed the use of amiodarone in the past, but her poor lung function precludes the use of that medication most likely. KE/LENKA/DENISE DR: Layne TID: [id number]
[2021-07-07 11:00] VITALS: BP 91/57
[2021-07-07] MEDS: ALBUTEROL SULFATE 2.5 MG/3 ML NEBU. NEB SCH ×2 (11:54→19:55)
--- NOTE | 2021-07-07 12:08 | EKG ---
[facility] [address] [place] [address] Test Date: 2021-07-07 Test Time: 04:13:49 Pat Name: NEELAM JAIME Department: Room: Gender: F Video Production Coordinator: : 1945 Requested By: ANA SEAY Order Number: [id number] Reading MD: Measurements Intervals [place] Rate: 151 P: HI: QRS: -2 QRSD: 106 T: 144 QT: 304 QTc: 483 Interpretive Statements IRREGULAR RHYTHM, NO P-WAVE FOUND LEFTWARD AXIS QRS(T) CONTOUR ABNORMALITY CONSIDER ANTEROSEPTAL MYOCARDIAL DAMAGE ST & T ABNORMALITY, CONSIDER ANTEROLATERAL ISCHEMIA OR LEFT VENTRICULAR STRAIN ABNORMAL ECG RI6.01 No previous ECG available for comparison
--- NOTE | 2021-07-07 12:30 | PDOC2 ---
CONSULT Date of Consult Date of Consult DATE: 07/07/21 TIME: 12:30 Reason for Consult Reason for Consult: Shortness of breath Referring Physician Referring Physician: Dr. Pickett Identification/Chief Complaint Chief Complaint Shortness of breath Source Source: Chart review, Patient History of Present Illness Reason for Visit: 76 y/o female with history of COPD, CAD s/p CABG and permanent atrial fibrillation presented with progressive shortness of breath. She denied any chest pain, orthopnea/PND, palpitations or syncope. She was diagnosed with acute resp failure secondary to combination of acute on chr diast HF and acute COPD exacerbation and admitted for further management. She was found to have AF with rapid ventricular response on admission that has currently improved with improvement in dyspnea. Past Medical History Cardiovascular: AFIB, CAD, CHF, HTN, Hyperlipidemia Pulmonary: Asthma, COPD, Other GI: GERD, Other Heme/Onc: Anemia NOS, Cancer Psych: Anxiety, Depression Musculoskeletal: Osteoarthritis Renal/: Chronic renal insuff Endocrine: Diabetes Past Surgical History Past Surgical History: Hernia Repair, Tubal Ligation, Tonsillectomy Family History Family History: Diabetes, Hypertension Social History ALCOHOL: none Drugs: None Lives: with Family Current Problem List Problem List Problems Medical Problems: (1) Atrial fibrillation Status: Acute Current Medications Current Medications Current Medications Diltiazem HCl (Cardizem Iv Push) 10 mg 1X ONCE IVP Last administered on 07/07/21at 04:51; Start 07/07/21 at 05:00; Stop 07/07/21 at 05:01; Status DC Diltiazem HCl 125 mg/Sodium Chloride 125 ml @ 5 mls/hr 1X ONCE IV Last administered on 07/07/21at 04:52; Start 07/07/21 at 05:00; Stop 07/08/21 at 05:59 Furosemide (Lasix) 40 mg 1X ONCE IVP Last administered on 07/07/21at 06:28; Start 07/07/21 at 06:00; Stop 07/07/21 at 06:01; Status DC Ondansetron HCl (Zofran) 4 mg PRN Q8HRS PRN IVP NAUSEA/VOMITING 1ST CHOICE; Start 07/07/21 at 05:30; Stop 07/08/21 at 05:29 Acetaminophen (Tylenol) 650 mg PRN Q4HRS PRN PO FEVER > 100.3'F; Start 07/07/21 at 05:30; Stop 07/08/21 at 05:29 Amlodipine Besylate (Norvasc) 5 mg DAILY PO Last administered on 07/07/21 09:01; Start 07/07/21 at 09:00 Apixaban (Eliquis) 2.5 mg BID PO Last administered on 07/07/21 09:02; Start 07/07/21 at 09:00 Baclofen (Lioresal) 10 mg DAILY PO Last administered on 07/07/21at 09:01; Start 07/07/21 at 09:00 Gabapentin (Neurontin) 300 mg TID PO Last administered on 07/07/21 09:02; Sta rt 07/07/21 at 09:00 Hydroxyzine HCl (Atarax) 25 mg QID PO Last administered on 07/07/21 09:02; Start 07/07/21 at 09:00 Metoprolol Succinate (Toprol Xl) 25 mg DAILY PO Last administered on 07/07/21 09:02; Start 07/07/21 at 09:00 Oxycodone HCl (OxyCONTIN) 30 mg BID PO Last administered on 07/07/21 09:03; Start 07/07/21 at 09:00 Celecoxib (CeleBREX) 200 mg DAILY PO Last administered on 07/07/21 09:02; Start 07/07/21 at 09:00 Diazepam (Valium) 10 mg PRN Q8HRS PRN PO ANXIETY / AGITATION; Start 07/07/21 at 08:45 Duloxetine HCl (Cymbalta) 60 mg DAILY PO Last administered on 07/07/21at 09:02; Start 07/07/21 at 09:00 Non-Formulary Medication (Fluticasone/ Salmeterol (Advair 250-50 Diskus)) 1 puff BID IH ; Start 07/07/21 at 09:00; Status UNV Hydrochlorothiazide (Microzide) 12.5 mg DAILY PO Last administered on 07/07/21 09:02; Start 07/07/21 at 09:00 Non-Formulary Medication (Metformin Hcl ) 1,000 mg BIDWMEALS PO ; Start 07/07/21 at 17:00; Status UNV Pantoprazole Sodium (Protonix) 40 mg DAILYAC PO Last administered on 9/24/21at 09:02; Start 07/07/21 at 09:00 Ropinirole HCl (Requip) 0.5 mg TID PO Last administered on 07/07/21at 09:01; Start 07/07/21 at 09:00 Atorvastatin Calcium (Lipitor) 80 mg QHS PO ; Start 07/07/21 at 21:00 Diltiazem HCl (Cardizem 24hr Cd) 240 mg DAILY PO Last administered on 07/07/21at 09:01; Start 07/07/21 at 09:00 Info (Anti-Coagulation Monitoring By Pharmacy) 1 each PRN DAILY PRN MC PER PROTOCOL; Start 07/07/21 at 09:00 Budesonide (Pulmicort) 0.5 mg RTBID NEB ; Start 07/07/21 at 09:15 Albuterol Sulfate (Ventolin Neb Soln) 2.5 mg Q6HRS NEB ; Start 07/07/21 at 12:00 Active Scripts Active Reported Proair Hfa (Albuterol Sulfate) 8.5 Gm Hfa.aer.ad 2 Puff IH PRN Q4-6HRS PRN 21 Days Gabapentin 300 Mg Capsule 300 Mg PO TID Oxycontin (Oxycodone HCl) 15 Mg Tab.er.12h 30 Mg PO BID Amlodipine Besylate 5 Mg Tablet 5 Mg PO DAILY Hydrochlorothiazide Tablet (Hydrochlorothiazide) 12.5 Mg Tablet 12.5 Mg PO DAILY Ropinirole Hcl 0.5 Mg Tablet 0.5 Mg PO TID Eliquis (Apixaban) 2.5 Mg Tablet 2.5 Mg PO BID Valium (Diazepam) 10 Mg Tablet 10 Mg PO PRN Q8HRS PRN Belsomra (Suvorexant) 20 Mg Tablet 20 Mg PO HS Omeprazole 40 Mg Capsule. 1 Cap PO DAILY Advair 250-50 Diskus (Fluticasone/Salmeterol) 1 Each Disk.w.dev 1 Puff IH BID Levalbuterol HCl 1.25 Mg/3 Ml Vial.neb 1.25 Mg IH BID Hydroxyzine Hcl 25 Mg Tablet 25 Mg PO QID Metoprolol Succinate ( Xl ) (Metoprolol Succinate) 25 Mg Tab.er.24h 25 Mg PO DAILY Metformin Hcl 1,000 Mg Tablet 1,000 Mg PO BIDWMEALS Duloxetine Hcl 60 Mg Capsule.dr 60 Mg PO DAILY Crestor (Rosuvastatin Calcium) 20 Mg Tablet 20 Mg PO HS Baclofen 10 Mg Tablet 10 Mg PO DAILY Celebrex (Celecoxib) 200 Mg Capsule 200 Mg PO DAILY Allergies Allergies: Coded Allergies: No Known Drug Allergies (Unverified , 02/25/20) ROS PSYCHOLOGICAL ROS: No: Hallucinations Eyes: No Loss of vision HEENT: No: Epistaxis Respiratory: YES: Shortness of breath; No: Hemoptysis Cardiovascular: No Chest Pain Gastrointestinal: No Vomiting Genitourinary: No Incontinence Neurological: No Seizures Skin: No Rash Physical Exam General: Alert, No acute distress HEENT: Atraumatic Lungs: Other (bilateral exp ronchi) Heart: Other (HR irregular) Abdomen: Soft Extremities: No edema Neuro: Normal speech Psych/Mental Status: Mood NL Vitals VITALS Vital Signs Date Time Temp Pulse Resp B/P (MAP) Pulse Ox O2 Delivery O2 Flow Rate FiO2 07/07/21 11:00 98.6 76 20 91/57 (68) 96 Nasal Cannula 3.0 98.6 Labs Labs Laboratory Tests Test 07/07/21 04:24 07/07/21 06:31 07/07/21 08:05 White Blood Count 7.3 x10^3/uL (4.0-11.0) Red Blood Count 3.77 x10^6/uL (3.50-5.40) Hemoglobin 12.2 g/dL (12.0-15.5) Hematocrit 36.3 % (36.0-47.0) Mean Corpuscular Volume 96 fL (79-100) Mean Corpuscular Hemoglobin 32 pg (25-35) Mean Corpuscular Hemoglobin Concent 34 g/dL (31-37) Red Cell Distribution Width 15.0 % (11.5-14.5) Platelet Count 196 x10^3/uL (140-400) Neutrophils (%) (Auto) 64 % (31-73) Lymphocytes (%) (Auto) 25 % (24-48) Monocytes (%) (Auto) 7 % (0-9) Eosinophils (%) (Auto) 3 % (0-3) Basophils (%) (Auto) 1 % (0-3) Neutrophils # (Auto) 4.7 x10^3/uL (1.8-7.7) Lymphocytes # (Auto) 1.8 x10^3/uL (1.0-4.8) Monocytes # (Auto) 0.5 x10^3/uL (0.0-1.1) Eosinophils # (Auto) 0.2 x10^3/uL (0.0-0.7) Basophils # (Auto) 0.1 x10^3/uL (0.0-0.2) Sodium Level 140 mmol/L (136-145) Potassium Level 4.6 mmol/L (3.5-5.1) Chloride Level 102 mmol/L (98-107) Carbon Dioxide Level 25 mmol/L (21-32) Anion Gap 13 (6-14) Blood Urea Nitrogen 17 mg/dL (7-20) Creatinine 1.7 mg/dL (0.6-1.0) Estimated GFR (Cockcroft-Gault) 29.3 BUN/Creatinine Ratio 10 (6-20) Glucose Level 232 mg/dL (70-99) Calcium Level 9.1 mg/dL (8.5-10.1) Total Bilirubin 0.5 mg/dL (0.2-1.0) Aspartate Amino Transf (AST/SGOT) 32 U/L (15-37) Alanine Aminotransferase (ALT/SGPT) 32 U/L (14-59) Alkaline Phosphatase 110 U/L (46-116) Troponin I Quantitative < 0.017 ng/mL (0.000-0.055) < 0.017 ng/mL (0.000-0.055) MQ-Wxc-Q-Type Natriuretic Peptide 8926 pg/mL (0-449) Total Protein 7.0 g/dL (6.4-8.2) Albumin 3.5 g/dL (3.4-5.0) Albumin/Globulin Ratio 1.0 (1.0-1.7) SARS-CoV-2 RNA (ABBE) Negative (Negative) Laboratory Tests Test 07/07/21 04:24 07/07/21 06:31 07/07/21 08:05 White Blood Count 7.3 x10^3/uL (4.0-11.0) Red Blood Count 3.77 x10^6/uL (3.50-5.40) Hemoglobin 12.2 g/dL (12.0-15.5) Hematocrit 36.3 % (36.0-47.0) Mean Corpuscular Volume 96 fL (79-100) Mean Corpuscular Hemoglobin 32 pg (25-35) Mean Corpuscular Hemoglobin Concent 34 g/dL (31-37) Red Cell Distribution Width 15.0 % (11.5-14.5) Platelet Count 196 x10^3/uL (140-400) Neutrophils (%) (Auto) 64 % (31-73) Lymphocytes (%) (Auto) 25 % (24-48) Monocytes (%) (Auto) 7 % (0-9) Eosinophils (%) (Auto) 3 % (0-3) Basophils (%) (Auto) 1 % (0-3) Neutrophils # (Auto) 4.7 x10^3/uL (1.8-7.7) Lymphocytes # (Auto) 1.8 x10^3/uL (1.0-4.8) Monocytes # (Auto) 0.5 x10^3/uL (0.0-1.1) Eosinophils # (Auto) 0.2 x10^3/uL (0.0-0.7) Basophils # (Auto) 0.1 x10^3/uL (0.0-0.2) Sodium Level 140 mmol/L (136-145) Potassium Level 4.6 mmol/L (3.5-5.1) Chloride Level 102 mmol/L (98-107) Carbon Dioxide Level 25 mmol/L (21-32) Anion Gap 13 (6-14) Blood Urea Nitrogen 17 mg/dL (7-20) Creatinine 1.7 mg/dL (0.6-1.0) Estimated GFR (Cockcroft-Gault) 29.3 BUN/Creatinine Ratio 10 (6-20) Glucose Level 232 mg/dL (70-99) Calcium Level 9.1 mg/dL (8.5-10.1) Total Bilirubin 0.5 mg/dL (0.2-1.0) Aspartate Amino Transf (AST/SGOT) 32 U/L (15-37) Alanine Aminotransferase (ALT/SGPT) 32 U/L (14-59) Alkaline Phosphatase 110 U/L (46-116) Troponin I Quantitative < 0.017 ng/mL (0.000-0.055) < 0.017 ng/mL (0.000-0.055) AR-Pnx-M-Type Natriuretic Peptide 8926 pg/mL (0-449) Total Protein 7.0 g/dL (6.4-8.2) Albumin 3.5 g/dL (3.4-5.0) Albumin/Globulin Ratio 1.0 (1.0-1.7) SARS-CoV-2 RNA (ABBE) Negative (Negative) Assessment/Plan Assessment/Plan 1. Acute respiratory failure secondary to combination of acute COPD exacerbation and mild acute on chronic diastolic heart failure. Much better compensated with diuresis. Patient was advised to take Lasix daily instead of every other day. Continue treatment of COPD exacerbation per pulmonary team. 2D echo in December 2020 showed LVEF 55% with moderate aortic stenosis. 2. Permanent atrial fibrillation with slightly elevated heart rate most probably secondary to respiratory distress. HR better controlled with cardizem. Continue Eliquis for stroke prophylaxis. 3. Coronary artery disease s/p CABG, clinically stable and chest pain-free. Continue current secondary prevention measures. 4. Hypertension: Controlled 5. Hyperlipidemia: Continue statin therapy 6. Diabetes mellitus type 2: Treat per IM Thank you for your consultation AMPARO DUNN MD Jul 07, 2021 12:30
--- NOTE | 2021-07-07 15:12 | NUR ---
SS following for discharge planning. SS reviewed pt chart and discussed with pt RN. Pt is from home with family and is currently requiring oxygen at three liters nasal canula. Pt has home oxygen. COVID19 negative. SS will continue to follow for discharge planning.
[2021-07-07 15:14] VITALS: BP 84/46
[2021-07-07 19:18] VITALS: BP 89/51
[2021-07-07 22:08] VITALS: BP 93/53
[2021-07-07] MEDS: ATORVASTATIN CALCIUM 40 MG TABLET. PO SCH (22:28)
[2021-07-08] MEDS: ALBUTEROL SULFATE 2.5 MG/3 ML NEBU. NEB SCH ×4 (01:42→20:56)
[2021-07-08 03:59] VITALS: BP 89/54
[2021-07-08 06:35] VITALS: BP 99/57
[2021-07-08] MEDS: BUDESONIDE 0.5 MG/2 ML NEBU. NEB SCH ×2 (07:46→20:56)
[2021-07-08] MEDS: METOPROLOL SUCC 24HR ER 25 MG TAB.ER.24H. PO SCH (09:00)
[2021-07-08] MEDS: DULoxetine HCL 30 MG CAPSULE.DR PO SCH (09:21)
[2021-07-08] MEDS: BACLOFEN 10 MG TABLET. PO SCH (09:21)
[2021-07-08] MEDS: PANTOPRAZOLE 40 MG TABLET.DR. PO SCH (09:21)
[2021-07-08] MEDS: hydrOXYzine 25 MG TABLET PO SCH ×4 (09:21→20:27)
[2021-07-08] MEDS: oxyCODONE ER 15 MG TAB.ER.12H PO SCH ×2 (09:21→20:29)
[2021-07-08] MEDS: rOPINIRole 0.25 MG TABLET. PO SCH ×3 (09:21→20:28)
[2021-07-08] MEDS: GABAPENTIN 300 MG CAPSULE. PO SCH ×3 (09:21→20:27)
[2021-07-08] MEDS: CELECOXIB 100 MG CAPSULE. PO SCH (09:22)
[2021-07-08] MEDS: hydroCHLOROthiazide 12.5 MG CAPSULE PO SCH (09:22)
[2021-07-08] MEDS: APIXABAN 2.5 MG TABLET. PO SCH ×2 (09:22→20:27)
[2021-07-08 11:00] VITALS: BP 109/56
[2021-07-08 14:29] VITALS: BP 105/57
[2021-07-08 19:35] VITALS: BP 145/67
[2021-07-08] MEDS: ATORVASTATIN CALCIUM 40 MG TABLET. PO SCH (20:28)
[2021-07-08 22:28] VITALS: BP 112/59
--- NOTE | 2021-07-09 00:06 | PN ---
DATE: 07/08/2021 DAILY PROGRESS NOTE LOCATION: She is in room 646. SUBJECTIVE: This 76-year-old female was admitted with atrial fib with a rapid ventricular response, shortness of breath and some heart failure. This was complicated by COPD. States she feels much better this morning than she did on admission. She is anticipating possible discharge after Cardiology sees her today. OBJECTIVE: VITAL SIGNS: Stable. She is afebrile. GENERAL: She is awake and alert. CHEST: Reveals some bibasilar crackles. HEART: Irregularly irregular with rate in the 80s. ABDOMEN: Benign. EXTREMITIES: No significant edema. IMAGING STUDIES: Chest x-ray on admission did show some mild pulmonary edema. ASSESSMENT: Atrial fibrillation with rapid ventricular response, complicated by acute diastolic congestive heart failure and also complicated by some chronic obstructive pulmonary disease. PLAN: Continue present treatment. Await Cardiology's thoughts. If she is still here in the morning, we will repeat a chest x-ray and possibly give her a dose of Lasix. I would anticipate for sure discharge tomorrow. MACIEL/CARISA DR: Melissa TID: [id number]
[2021-07-09 02:43] VITALS: BP 107/56
[2021-07-09 07:03] VITALS: BP 110/65
[2021-07-09] MEDS: BUDESONIDE 0.5 MG/2 ML NEBU. NEB SCH ×2 (07:43→20:28)
[2021-07-09] MEDS: ALBUTEROL SULFATE 2.5 MG/3 ML NEBU. NEB SCH ×4 (07:43→20:28)
[2021-07-09] MEDS: hydrOXYzine 25 MG TABLET PO SCH ×4 (07:47→21:17)
[2021-07-09] MEDS: APIXABAN 2.5 MG TABLET. PO SCH ×2 (07:48→21:15)
[2021-07-09] MEDS: CELECOXIB 100 MG CAPSULE. PO SCH (07:48)
[2021-07-09] MEDS: hydroCHLOROthiazide 12.5 MG CAPSULE PO SCH (07:49)
[2021-07-09] MEDS: rOPINIRole 0.25 MG TABLET. PO SCH ×3 (07:49→21:15)
[2021-07-09] MEDS: METOPROLOL SUCC 24HR ER 25 MG TAB.ER.24H. PO SCH (07:49)
[2021-07-09] MEDS: oxyCODONE ER 15 MG TAB.ER.12H PO SCH ×2 (07:49→21:15)
[2021-07-09] MEDS: BACLOFEN 10 MG TABLET. PO SCH (07:50)
[2021-07-09] MEDS: GABAPENTIN 300 MG CAPSULE. PO SCH ×3 (07:50→21:14)
[2021-07-09] MEDS: DULoxetine HCL 30 MG CAPSULE.DR PO SCH (07:50)
[2021-07-09] MEDS: PANTOPRAZOLE 40 MG TABLET.DR. PO SCH (07:51)
[2021-07-09 10:35] VITALS: BP 101/59
[2021-07-09] MEDS ORDERED: FUROSEMIDE 40 MG/4 ML VIAL. IVP ONE (11:00)
--- NOTE | 2021-07-09 11:29 | PN ---
DATE: 07/09/2021 DAILY PROGRESS NOTE LOCATION: She is in room 646. SUBJECTIVE: This 76-year-old female admitted with AFib with rapid ventricular response, had shortness of breath and some heart failure. This is all complicated by COPD. She continues to feel better. OBJECTIVE: VITAL SIGNS: Stable. She is afebrile. GENERAL: She is awake and alert. CHEST: Still some bibasilar crackles. HEART: Irregularly irregular with rate in the 80s. ABDOMEN: Benign. EXTREMITIES: No significant edema. IMPRESSION: 1. Atrial fibrillation with rapid ventricular response with acute diastolic congestive heart failure. 2. Good rate control at this point in time with the diltiazem and metoprolol. PLAN: Continue present treatment. Give 1 dose of IV Lasix. Recheck chest x-ray and likely discharge later this afternoon on her regular home medicines with addition of the metoprolol and diltiazem. ALICIA DR: Melissa TID: [id number]
[2021-07-09 15:41] VITALS: BP 121/57
[2021-07-09 19:30] VITALS: BP 128/56
[2021-07-09] MEDS: ATORVASTATIN CALCIUM 40 MG TABLET. PO SCH (21:15)
[2021-07-09 22:37] VITALS: BP 100/50
--- NOTE | 2021-07-09 22:40 | RAD ---
EXAM: XR CHEST 1V 07/09/2021 11:08 AM CLINICAL INDICATION: Shortness of breath and pulmonary edema on chest radiograph 2 days ago COMPARISON: Chest radiograph 07/07/2021 TECHNIQUE: AP upright view of the chest FINDINGS: There are changes of median sternotomy. The heart is enlarged. Mild interstitial pulmonary edema has improved. There are persistent mild left perihilar and bibasilar opacities. No significant pleural effusion. No pneumothorax. IMPRESSION: Decreased interstitial pulmonary edema. There are persistent mild basilar predominant opa cities, greater on the left. Electronically signed by: Lara Diamond MD (07/09/2021 10:38 PM) CLEMENTECHRISSIE
[2021-07-10 02:39] VITALS: BP 117/62
[2021-07-10] MEDS ORDERED: METF10007 PO (05:48)
[2021-07-10] MEDS ORDERED: ASPI-886 PO (05:48)
[2021-07-10] MEDS ORDERED: FURO40TA4 PO (05:59)
[2021-07-10] MEDS ORDERED: MULT-697 PO (05:59)
[2021-07-10] MEDS ORDERED: UMEC62.5 IH (05:59)
[2021-07-10] MEDS ORDERED: BUPR150T21 PO (05:59)
[2021-07-10] MEDS ORDERED: UBID100C26 PO (05:59)
[2021-07-10] MEDS ORDERED: ONDA-84 PO (05:59)
[2021-07-10] MEDS ORDERED: DOCU250C8 PO (05:59)
[2021-07-10] MEDS ORDERED: FERR236T2 PO (05:59)
[2021-07-10] MEDS ORDERED: MECO10005 PO (05:59)
[2021-07-10] MEDS ORDERED: TRAZ-118 PO (06:03)
[2021-07-10] MEDS ORDERED: POTA10TA6 PO (06:03)
[2021-07-10] MEDS ORDERED: VIT1CAPS17 PO (06:03)
[2021-07-10] MEDS ORDERED: CHOL5000 PO (06:03)
--- NOTE | 2021-07-10 06:03 | NUR ---
pt brought in updated med list, home med list updated with that information at this time.
[2021-07-10 07:00] VITALS: BP 120/61
[2021-07-10] MEDS: ALBUTEROL SULFATE 2.5 MG/3 ML NEBU. NEB SCH ×3 (07:07→11:36)
[2021-07-10] MEDS: BUDESONIDE 0.5 MG/2 ML NEBU. NEB SCH (07:08)
[2021-07-10] MEDS: PANTOPRAZOLE 40 MG TABLET.DR. PO SCH (08:12)
--- NOTE | 2021-07-10 08:24 | PDOC ---
Provider Note Date of Service: DATE: 07/10/21 TIME: 08:23 Provider Note [id number] Justifications for Admission Other Justification NOE MILLER MD Jul 10, 2021 08:24
[2021-07-10] MEDS: METOPROLOL SUCC 24HR ER 25 MG TAB.ER.24H. PO SCH (08:50)
[2021-07-10] MEDS: hydroCHLOROthiazide 12.5 MG CAPSULE PO SCH (08:50)
[2021-07-10] MEDS: BACLOFEN 10 MG TABLET. PO SCH (08:50)
[2021-07-10] MEDS: CELECOXIB 100 MG CAPSULE. PO SCH (08:50)
[2021-07-10] MEDS: DULoxetine HCL 30 MG CAPSULE.DR PO SCH (08:51)
[2021-07-10] MEDS: APIXABAN 2.5 MG TABLET. PO SCH (08:51)
[2021-07-10] MEDS: GABAPENTIN 300 MG CAPSULE. PO SCH ×2 (08:51→14:03)
[2021-07-10] MEDS: oxyCODONE ER 15 MG TAB.ER.12H PO SCH (08:52)
[2021-07-10] MEDS: rOPINIRole 0.25 MG TABLET. PO SCH ×2 (09:34→14:03)
[2021-07-10] MEDS: hydrOXYzine 25 MG TABLET PO SCH ×3 (09:40→17:28)
--- NOTE | 2021-07-10 10:06 | DS ---
DATE OF DISCHARGE: 07/10/2021 HOSPITAL SUMMARY: A 76-year-old white female with known atrial fibrillation, recurrent; aortic stenosis and COPD, came in with atrial fibrillation with rapid ventricular response. Her heart rate slowed down with IV diltiazem and then diltiazem was used in place of metoprolol with good consistent results. Troponins were negative x 4. Serology for COVID was negative and chest x-ray showed unremarkable findings. She was maintained on oral diltiazem and is still in sinus rhythm with good heart rate and able to be discharged and followed as an outpatient at this point. FINAL DIAGNOSES: 1. Atrial fibrillation with rapid ventricular response. 2. Oxygen-dependent chronic obstructive pulmonary disease. 3. Moderate aortic stenosis. OPERATIONS, PROCEDURES AND COMPLICATIONS: None. CONSULTATION: Dr. Garcia's group. DISPOSITION: She will stop metoprolol and use diltiazem [address] of that. All other meds remain the same. Lasix, she is using 3 times a week. Office followup in 1-2 weeks and she continues on Eliquis for pulmonary or systemic embolus prophylaxis. Prognosis is guarded due to continued tobacco use. KE/ALYSSA/SARAH PÉREZ: KE/bobby TID: [id number]
[2021-07-10 11:00] VITALS: BP 112/58
--- NOTE | 2021-07-10 12:39 | NUR ---
SS following up with discharge planning. SS reviewed pt chart and discussed with pt RN. Pt is from home with family and is currently requiring oxygen at two liters nasal canula. Pt has home oxygen. COVID19 negative. Discharge order on the chart for home with self care.
[2021-07-10 15:00] VITALS: BP 111/65
== END 2021-07-10 18:10 | disposition home or self-care (01) | DRG 291 ==
LOC: ER 04:07 → 6 SOUTH 05:09
PROVIDERS: ADMIT Family Medicine; ATTEND Family Medicine
DX: I13.0 Hypertensive heart and chronic kidney disease with heart failure and stage 1 through stage 4 chronic kidney disease, or unspecified chronic kidney disease (principal); I50.33 Acute on chronic diastolic (congestive) heart failure; J96.00 Acute respiratory failure, unspecified whether with hypoxia or hypercapnia; I48.21 Permanent atrial fibrillation; J44.1 Chronic obstructive pulmonary disease with (acute) exacerbation; E11.22 Type 2 diabetes mellitus with diabetic chronic kidney disease; E78.5 Hyperlipidemia, unspecified; I25.10 Atherosclerotic heart disease of native coronary artery without angina pectoris; I35.0 Nonrheumatic aortic (valve) stenosis; N18.9 Chronic kidney disease, unspecified; F32.9 Major depressive disorder, single episode, unspecified; F41.9 Anxiety disorder, unspecified; K21.9 Gastro-esophageal reflux disease without esophagitis; M19.90 Unspecified osteoarthritis, unspecified site; Z20.822 Contact with and (suspected) exposure to COVID-19; Z82.49 Family history of ischemic heart disease and other diseases of the circulatory system; Z83.3 Family history of diabetes mellitus; Z87.891 Personal history of nicotine dependence; Z90.49 Acquired absence of other specified parts of digestive tract; Z95.1 Presence of aortocoronary bypass graft; Z99.81 Dependence on supplemental oxygen; Z98.51 Tubal ligation status
CPT/HCPCS: 36415; 71045; 80053; 83880; 84484; 85025; 93005; 94618; 94640; 94760; 96365; 96366; 96375; 96376; J1940; J3490; U0003; U0005; 99291-25; G0378; J7613; J7626